=== PATIENT | female | born 1990 | race African-American/Black ===

== ENCOUNTER 2016-08-25 10:19 | Emergency (ER) | payer MEDICAID ==
[2016-08-25] MEDS ORDERED: HYDROCODONE/ACETAMINOPHEN 5-325 MG TABLET PO ONE (10:45)
[2016-08-25] MEDS ORDERED: ONDANSETRON 4 MG TAB.RAPDIS SL ONE (10:45)
[2016-08-25] MEDS ORDERED: NORMAL SALINE 1000 ML 1,000 ML IV PRN (10:45)
[2016-08-25] MEDS ORDERED: TRAMADOL HCL 50 MG TABLET PO ONE (10:47)
--- NOTE | 2016-08-25 10:47 | ER Document Report ---
ED Medical Screen (RME) - General Chief Complaint: Headache Stated Complaint: HEADACHE,JOINT PAIN,LIGHT SENSITIVITY Time seen by provider: 10:46 Mode of Arrival: Wheelchair Information source: Patient TRAVEL OUTSIDE OF THE U[place] IN LAST 30 DAYS: No - HPI Patient complains to provider of: headache, nausea Onset: This morning Onset/Duration: Gradual Quality of pain: Achy Severity: Moderate Pain Level: 3 Associated Symptoms: Nausea Exacerbated by: Other - light Relieved by: Denies Similar symptoms previously: Yes Recently seen / treated by doctor: Yes Notes: 08/25/16 10:47 Patient is a 25-year-old female with history of CML who was recently hospitalized in [place] and received chemotherapy, presents to the emergency room today complaining of a headache that started around 3:00 in the morning and woke her from sleep, she reports associated nausea and photophobia, she has not taken anything at home for her symptoms prior to coming to the emergency room, denies any fever Oncologist is Dr. Wayne from [place] - Related Data Allergies/Adverse Reactions: ibuprofen Adverse Reaction (Verified 08/25/16 10:26) Past Medical History Renal/ Medical History: Denies: Hx Peritoneal Dialysis Malignancy Medical History: Reports: Hx Leukemia - CML Past Surgical History: Reports: Hx Breast Surgery - Breast Reduction - Immunizations Immunizations up to date: No Hx Diphtheria, Pertussis, Tetanus Vaccination: No Physical Exam - Vital signs Vitals: Temp Pulse Resp BP Pulse Ox 98.1 F 77 14 109/59 L 99 08/25/16 10:28 08/25/16 10:28 08/25/16 10:28 08/25/16 10:28 08/25/16 10:28 Course - Vital Signs Vital signs: Temp Pulse Resp BP Pulse Ox 98.1 F 77 14 109/59 L 99 08/25/16 10:28 08/25/16 10:28 08/25/16 10:28 08/25/16 10:28 08/25/16 10:28
[2016-08-25] MEDS ORDERED: ONDANSETRON HCL INJ/PF 4 MG/2 ML SDV IV ONE (10:48)
[2016-08-25] MEDS ORDERED: KETOROLAC TROMETHAMINE INJ/PF 30 MG/1 ML SDV IV ONE (10:48)
--- NOTE | 2016-08-25 11:41 | ER Document Report ---
ED Headache - General Chief Complaint: Headache Stated Complaint: HEADACHE,JOINT PAIN,LIGHT SENSITIVITY Time seen by provider: 12:01 Mode of Arrival: Ambulatory Information source: Patient Notes: 25-year-old female presents to ED for headache with joint pains. She has a history of CML and was recently hospitalized at [facility] and received chemotherapy last day of chemotherapy was in the beginning of July. Her white count has been low until yesterday. She started with a headache at 3:00 this morning and has been having joint pain. She states she's been having joint pain since before she was diagnosed. She states that she is planning to have a bone marrow transplant and is getting that lined up. TRAVEL OUTSIDE OF THE [place] IN LAST 30 DAYS: No - HPI Patient complains to provider of: Headache Patient reports: Other - cml Onset: This morning Timing: Better Quality of pain: Achy Severity: Mild Pain Level: 1 Associated symptoms: Nausea/vomiting, Photophobia, Other - headache Exacerbated by: Light, Noise Similar symptoms previously: Yes Recently seen / treated by doctor: Yes - Related Data Allergies/Adverse Reactions: ibuprofen Adverse Reaction (Verified 08/25/16 10:26) Past Medical History - General Information source: Patient - Social History Smoking Status: Never Smoker Cigarette use (# per day): No Chew tobacco use (# tins/day): No Smoking Education Provided: No Frequency of alcohol use: None Drug Abuse: None Lives with: Family Family History: Reviewed & Not Pertinent Patient has suicidal ideation: No Patient has homicidal ideation: No - Past Medical History Cardiac Medical History: Reports: None Pulmonary Medical History: Reports: None EENT Medical History: Reports: None Neurological Medical History: Reports: None Endocrine Medical History: Reports: None Renal/ Medical History: Reports: None Malignancy Medical History: Reports: Hx Leukemia - CML GI Medical History: Reports: None Musculoskeltal Medical History: Reports None Skin Medical History: Reports None Psychiatric Medical History: Reports: None Traumatic Medical History: Reports: None Infectious Medical History: Reports: Other - herpes simplex Past Surgical History: Reports: Hx Breast Surgery - Breast Reduction, Hx Vascular Surgery - tlsc - Immunizations Immunizations up to date: No Hx Diphtheria, Pertussis, Tetanus Vaccination: No Review of Systems - Review of Systems Constitutional: No symptoms reported EENT: No symptoms reported Cardiovascular: No symptoms reported Respiratory: No symptoms reported Gastrointestinal: Nausea Genitourinary: No symptoms reported Female Genitourinary: No symptoms reported Musculoskeletal: No symptoms reported Skin: No symptoms reported Hematologic/Lymphatic: No symptoms reported Neurological/Psychological: Headaches Physical Exam - Vital signs Vitals: Temp Pulse Resp BP Pulse Ox 98.1 F 77 14 109/59 L 99 08/25/16 10:28 08/25/16 10:28 08/25/16 10:28 08/25/16 10:28 08/25/16 10:28 Interpretation: Normal - General General appearance: Appears well, Alert - HEENT Head: Normocephalic, Atraumatic Eyes: Normal Pupils: PERRL - Respiratory Respiratory status: No respiratory distress, Other - TLSC, right chest Chest status: Nontender Breath sounds: Normal Chest palpation: Normal - Cardiovascular Rhythm: Regular Heart sounds: Normal auscultation Murmur: No - Abdominal Inspection: Normal Distension: No distension Bowel sounds: Normal Tenderness: Nontender Organomegaly: No organomegaly - Back Back: Normal, Nontender - Extremities General upper extremity: Normal inspection, Nontender, Normal color, Normal ROM , Normal temperature General lower extremity: Normal inspection, Nontender, Normal color, Normal ROM , Normal temperature, Normal weight bearing. No: Velasquez's sign - Neurological Neuro grossly intact: Yes Cognition: Normal Orientation: AAOx4 Caleb Coma Scale Eye Opening: Spontaneous Caleb Coma Scale Verbal: Oriented Abrams Coma Scale Motor: Obeys Commands Abrams Coma Scale Total: 15 Speech: Normal Motor strength normal: LUE, RUE, LLE, RLE Sensory: Normal - Psychological Associated symptoms: Normal affect, Normal mood - Skin Skin Temperature: Warm Skin Moisture: Dry Skin Color: Normal Course - Re-evaluation Re-evalutation: 08/25/16 13:08 Labs discussed with patient and with parents. Written report of labs given to parents to follow-up with oncologist and [facility] on Wednesday. Patient states she is feeling better and is ready to go home. We'll discharge home with a copy of her labs. 08/25/16 13:08 Patient was treated with a liter of fluids Toradol Zofran Compazine and Benadryl. - Vital Signs Vital signs: Temp Pulse Resp BP Pulse Ox 98 F 92 20 101/69 100 08/25/16 13:32 08/25/16 13:32 08/25/16 13:32 08/25/16 13:32 08/25/16 13:32 - Laboratory Result Diagrams: 08/25/16 11:10 08/25/16 11:10 Laboratory results interpreted by me: 08/25/16 08/25/16 11:10 11:10 WBC 2.9 L RBC 2.85 L Hgb 7.7 L Hct 22.5 L MCV 79 L RDW 16.0 H Plt Count 41 L Seg Neuts % (Manual) 34 L Band Neutrophils % 1 L Lymphocytes % (Manual) 53 H Metamyelocytes % 1 H Abs Neuts (Manual) 1.0 L Creatinine 0.40 L Discharge - Discharge Clinical Impression: Headache Condition: Stable Disposition: HOME, SELF-CARE Additional Instructions: HEADACHE: The physician does not feel that the headache you are experiencing has a serious underlying cause. Most headaches are due to emotional stress, with resultant muscle tension (tension headache). Occasionally, headaches are secondary to changes in the blood vessels of the scalp (vascular headache and migraine headache). Sometimes, a headache is the first symptom of another developing illness, such as a viral infection. You have no evidence of stroke, bleeding, meningitis, or other serious cause of your headache. The treatment of headaches varies with the severity and cause of the pain. Not all headaches need pain shots. In fact, there is evidence that using narcotics for headaches may make them worse in the long run. The physician will determine the therapy that's in your best interest. If you develop a fever, if the headache is different from any you've previously experienced, or if the headache progressively worsens, then call your physician at once or go to the emergency room. USE OF DIPHENHYDRAMINE: Diphenhydramine (Benadryl) is an antihistamine and has been recommended to help treat your headache and to prevent side effects of other medications used to treat headaches. The medication can be repeated four times daily. Age Elixir (12.5 mg/tsp) 25 mg pill adult 1-2 tabs Antihistamines may cause drowsiness, especially with the first dose. Do not operate machinery or drive while under the effects of the medication. Do not combine the medication with alcohol, or with any other medication without talking to your doctor. ANTINAUSEA MEDICATION: You have been given a medication to suppress nausea and vomiting. This type of medication can be given as a shot, pill, or suppository. It will usually last for many hours. Pills and shots usually last six to eight hours, suppositories last about 12 hours. For the typical illness, only one or two doses of the medication may be necessary. Mild lightheadedness may occur. This type of medicine can cause drowsiness. Do not drive or operate dangerous machinery while under its influence. Do not mix with alcohol. See your doctor at once if you have muscle spasms or tightness, or uncontrollable motions (particularly of the neck, mouth, or jaw). Persistent vomiting or severe lightheadedness should also be evaluated by the physician. INTRAVENOUS COMPAZINE FOR HEADACHE: You have received therapy for headaches, using intravenous Compazine. This treatment is dramatically successful in relieving the headache in about 50 percent of cases. When it works, it provides a rapid method of eliminating the headache without resorting to narcotics (and the problems associated with them). Most patients still feel fully alert after the Compazine, but others may be slightly drowsy. It's best not to drive or work with machinery for six to eight hours. Do not take alcohol or other medication unless you discuss it with the doctor. If you develop tightness and spasms in your muscles, especially the neck and tongue, you should return. This is a side effect which can be treated. TORADOL INJECTION: You have been given an injection of ketorolac tromethamine (Toradol). This is an excellent, safe drug for pain control. It also has potent antiinflammatory action. You should have significant pain relief within about one hour. Toradol is not addicting and is non-sedating. It does not interfere with driving or work. Call or return if you develop itching, hives, shortness of breath, or rash. FOLLOW-UP CARE: Please follow-up with your oncologist on Wednesday as scheduled or return to ED before then if you have any other complications. If you have been referred to a physician for follow-up care, call the physician s office for an appointment as you were instructed or within the next two days. If you experience worsening or a significant change in your symptoms, notify the physician immediately or return to the Emergency Department at any time for re-evaluation. Please complete the patient's satisfaction survey if you get one and return. If you do not receive a survey you can go to [facility] website [email or web address] and place your comments about your very good care. Thank you very much. It was a pleasure be in your medical provider today.
[2016-08-25 11:51] LABS: HEMATOCRIT 22.5 % (36.0-47.0); HGB HCT DIFFERENCE 0.6; MEAN CORPUSCULAR HGB CONC 34.2 g/dL (32.0-36.0); MEAN CORPUSCULAR VOLUME 79 fl (80-97); RED BLOOD COUNT 2.85 10^6/uL (3.72-5.28); WHITE BLOOD COUNT 2.9 10^3/uL (4.0-10.5)
[2016-08-25 12:16] LABS: HEMOGLOBIN 7.7 g/dL (12.0-15.5)
[2016-08-25 12:20] LABS: ALANINE AMINOTRANSFERASE 50 U/L (9-52); ALKALINE PHOSPHATASE 62 U/L (38-126); ANION GAP 11 (5-19); ASPARTATE AMINO TRANSFERASE 20 U/L (14-36); BILIRUBIN,DIRECT 0.3 mg/dL (0.0-0.4); BILIRUBIN,TOTAL 0.5 mg/dL (0.2-1.3); BLOOD UREA NITROGEN 10 mg/dL (7-20); CALCIUM 9.2 mg/dL (8.4-10.2); CARBON DIOXIDE 26 mmol/L (22-30); CHLORIDE 107 mmol/L (98-107); GLUCOSE 105 mg/dL (75-110); POTASSIUM 3.6 mmol/L (3.6-5.0); SODIUM 143.6 mmol/L (137-145); TOTAL PROTEIN 6.7 g/dL (6.3-8.2)
[2016-08-25 12:23] LABS: BAND NEUTROPHILS % (MANUAL) 1 % (3-5); BASOPHILS % (MANUAL) 0 % (0-2); EOSINOPHILS % (MANUAL) 0 % (0-6); LYMPHOCYTES % (MANUAL) 53 % (13-45); NUCLEATED RED BLOOD CELLS 2 /100 WBC (0); TOTAL CELLS COUNTED 100
[2016-08-25 12:24] LABS: ANISOCYTOSIS 1+; HYPOCHROMASIA SLIGHT; OVALOCYTES 2+; POIKILOCYTOSIS 2+; POLYCHROMASIA 1+; ROULEAUX 1+; SCHISTOCYTES SLIGHT; TEAR DROP CELLS 1+; TOXIC GRANULATION SLIGHT
[2016-08-25] MEDS ORDERED: DIPHENHYDRAMINE HCL 50 MG/ML VIAL IV ONE (12:27)
[2016-08-25] MEDS ORDERED: PROCHLORPERAZINE EDISYLATE INJ 10 MG/2 ML VIAL IV ONE (12:27)
[2016-08-25 12:54] LABS: APPEARANCE,URINE CLEAR; BILIRUBIN,URINE NEGATIVE (NEGATIVE); GLUCOSE, URINE NEGATIVE (NEGATIVE); KETONES,URINE NEGATIVE (NEGATIVE); LEUKOCYTE ESTERASE,URINE NEGATIVE (NEGATIVE); NITRITE,URINE NEGATIVE (NEGATIVE); PROTEIN,URINE NEGATIVE (NEGATIVE); URINE SPECIFIC GRAVITY 1.011; UROBILINOGEN,URINE NEGATIVE mg/dL (<2.0)
[2016-08-25 13:33] VITALS: BP 101/69
== END 2016-08-25 13:54 | disposition home or self-care (01) ==
LOC: ER 10:19
DX: R51 Headache (principal); M25.50 Pain in unspecified joint; R11.2 Nausea with vomiting, unspecified; H53.149 Visual discomfort, unspecified; C92.10 Chronic myeloid leukemia, BCR/ABL-positive, not having achieved remission
CPT/HCPCS: 99284; 96374; 96375; 36415; 87086; 85025; 80053; 81001; J1200; J1885; J0780; J2405; J1642

== ENCOUNTER 2017-01-26 18:11 | Emergency (ER) | payer MEDICAID ==
[2017-01-26] MEDS ORDERED: NORMAL SALINE 1000 ML 1,000 ML IV ONE (18:55)
--- NOTE | 2017-01-26 18:57 | ER Document Report ---
ED General - General Mode of Arrival: Ambulatory Information source: Patient TRAVEL OUTSIDE OF THE [place] IN LAST 30 DAYS: No - HPI Onset: Other - Refer to HPI notes Similar symptoms previously: No Recently seen / treated by doctor: No <HELENA ARELLANO - Last Filed: 01/27/17 03:25> <JUANVICENTAUZMA - Last Filed: 01/27/17 03:26> - General Chief Complaint: Weakness Stated Complaint: LIGHTHEADEDNESS Time Seen by Provider: 01/26/17 18:48 Notes: Patient is a 26 year old female with history of leukemia presenting to the emergency department for weakness, shortness of breath, and lightheadedness. Patient also complains of chills. Patient states she believes she is dehydrated because she has had dry lips. Patient states she has chronic vomiting and lack of appetite which has not changed or become worse. Patient states she is on Eliquis for a blood clot on her Loza catheter. 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 Patient states she is allergic to ibuprofen. Patient used to go to [facility] but she is mostly followed by Dr. Fu at [place]. (HELENA ARELLANO) - Related Data Allergies/Adverse Reactions: ibuprofen Adverse Reaction (Verified 01/26/17 18:24) Past Medical History - General Information source: Patient - Social History Smoking Status: Never Smoker Cigarette use (# per day): No Chew tobacco use (# tins/day): No Smoking Education Provided: No Frequency of alcohol use: None Drug Abuse: None Family History: None Patient has suicidal ideation: No Patient has homicidal ideation: No Malignancy Medical History: Reports: Hx Leukemia - CML Past Surgical History: Reports: Hx Breast Surgery - Breast Reduction, Hx Vascular Surgery - tlsc - Immunizations Immunizations up to date: No Hx Diphtheria, Pertussis, Tetanus Vaccination: No <HELENA ARELLANO - Last Filed: 01/27/17 03:25> Review of Systems - Review of Systems Constitutional: See HPI, Chills EENT: See HPI, Other - dry lips Cardiovascular: See HPI, Lightheaded. denies: Chest pain Respiratory: See HPI, Short of breath Gastrointestinal: See HPI, Nausea, Vomiting, Poor appetite Genitourinary: No symptoms reported Female Genitourinary: No symptoms reported Musculoskeletal: No symptoms reported Skin: No symptoms reported Hematologic/Lymphatic: No symptoms reported Neurological/Psychological: See HPI, Weakness -: Yes All other systems reviewed and negative <HELENA ARELLANO - Last Filed: 01/27/17 03:25> Physical Exam - Vital signs Interpretation: Normal <HELENA ARELLANO - Last Filed: 01/27/17 03:25> <UZMA LANDRY - Last Filed: 01/27/17 03:26> - Vital signs Vitals: Temp Pulse Resp BP Pulse Ox 98.3 F 95 16 105/86 H 100 01/26/17 18:24 01/26/17 18:24 01/26/17 18:24 01/26/17 18:24 01/26/17 18:24 - Notes Notes: GENERAL: Alert, interacts well, slightly tremulous. Appears short of breath. HEAD: Normocephalic, atraumatic. EYES: Pupils equal, round, and reactive to light. Extraocular movements intact. ENT: Oral mucosa moist, tongue midline. NECK: Full range of motion. Supple. Trachea midline. LUNGS: Appears short of breath. Speaking 2-3 word sentences. Clear to auscultation bilaterally, no wheezes, rales, or rhonchi. HEART: Regular rate and rhythm. No murmurs, gallops, or rubs. ABDOMEN: Soft, non-tender. Non-distended. Bowel sounds present in all 4 quadrants. EXTREMITIES: Moves all 4 extremities spontaneously. No edema, radial and dorsalis pedis pulses 2/4 bilaterally. No cyanosis. NEUROLOGICAL: Alert and oriented x3. Normal speech. PSYCH: Normal affect, normal mood. SKIN: Warm, dry, normal turgor. No rashes or lesions noted. (ELOISEHELENA HALL) Course - Laboratory Result Diagrams: 01/26/17 18:56 01/26/17 20:25 - Consults [facility] Transfer line Time consulted: 23:35 <HELENA ARELLANO - Last Filed: 01/27/17 03:25> - Laboratory Result Diagrams: 01/26/17 18:56 01/26/17 20:25 <UZMA LANDRY - Last Filed: 01/27/17 03:26> - Re-evaluation Re-evalutation: 01/27/17 00:48 CBC unremarkable, INR slightly prolonged at 1.13, venous blood gas shows respiratory alkalosis with pH of 7.55 and a PCO2 of 32.8 consistent with her tachypnea, CMP shows potassium that is low at 3.2 and AST and ALT slightly elevated, otherwise unremarkable, lactic acid normal, hCG negative, urinalysis unremarkable, no ketones and specific gravity is 1.005. Patient was given a liter of fluids due to her feeling that she is dehydrated. Patient actually looks much better after this liter of fluids despite the fact that there is no laboratory evidence of dehydration. Given her tachypnea and shortness of breath on physical examination, she was speaking in 4-5 word sentences despite having no hypoxia or tachycardia I did perform a CT angiogram of the chest to look for pulmonary embolism particularly given the known clot attached to her Loza catheter back in June. This did reveal a focal pulmonary embolism in 1 of the right pulmonary arteries. I then discussed the case with Dr. England the Heme/Onc fellow [facility] who referred me to speak with Dr. Adam Sanchez the attending physician candle extrusion machine operator. The attending physician candle extrusion machine operator stated that this would be counted as a failure of Eliquis, recommended starting low molecular weight heparin 1 mg/kg subcu every 12 hours, stated that that was the standard of care for anticoagulation in cancer however stated that acutely we could change her to a double dose of Eliquis twice a day for the next 2 days until she was followed up in clinic in 2 days. Discussed these 2 options with patient, she prefers to use the Eliquis as she already has that at home and hates shots. She will take 2 pills of Eliquis twice a day for the next 2 days. Patient is aware that enoxaparin is the better idea. Currently she is completely symptom-free, tremor has resolved, patient is not hypoxic, tachypnea has resolved, there is no shortness of breath apparent at this time. (UZMA LANDRY) - Vital Signs Vital signs: Temp Pulse Resp BP Pulse Ox 98.3 F 74 20 101/72 100 01/26/17 18:24 01/26/17 22:00 01/27/17 01:01 01/27/17 01:01 01/27/17 01:01 - Laboratory Laboratory results interpreted by me: 01/26/17 01/26/17 01/26/17 18:56 19:54 20:25 RDW 14.5 H VBG pH 7.55 H VBG pCO2 32.8 L Potassium 3.2 L AST 51 H ALT 83 H - EKG Interpretation by Me Additional EKG results interpreted by me: 01/27/17 01:09 EKG shows sinus rhythm at a rate of 80, normal axis, normal intervals, no ST segment elevations or depressions, there are T-wave inversions noted in V1 through V3, poor baseline in V4, T-wave flattening in V5 and diffusely elsewhere per my interpretation. (UZMA LANDRY) - Consults [facility] Transfer line Reason for consultation: 01/26/17 23:35 Contacted [facility] transfer line to consult about patient; Dr. Stevenson will be calling back. 01/27/17 00:[address] Stevenson to discuss patient. Dr. Stevenson recommends that Dr. Gaurang Sanchez, the attending physician answer this question and he will be paged to call. 01/27/17 00:[address] Gaurang Sanchez. He recommends to either start the patient on LMWH or double the patient's dose of Eliquis for 2 days and change it in the clinic afterwards. (HELENA ARELLANO) Discharge <HELENA ARELLANO - Last Filed: 01/27/17 03:25> <UZMA LANDRY - Last Filed: 01/27/17 03:26> - Discharge Clinical Impression: Pulmonary embolism Qualifiers: Pulmonary embolism type: other Chronicity: acute Acute cor pulmonale presence: without acute cor pulmonale Qualified Code(s): I26.99 - Other pulmonary embolism without acute cor pulmonale Condition: Stable Disposition: HOME, SELF-CARE Additional Instructions: Please take 2 of your Eliquis twice a day for the next 2 days until you are followed up in clinic. Dr. Sanchez stated this was 1 of your options and you have chosen this option. The other option was to switch to the Lovenox shots 1 mg/kg twice a day. He does state that using Lovenox is the better option. Please return here should you become short of breath, have any chest pain, feel weak or become tremulous again. Scribe Attestation: 01/27/17 03:25 I personally performed the services described in the documentation, reviewed and edited the documentation which was dictated to the scribe in my presence, and it accurately records my words and actions. (UZMA LANDRY) Scribe Documentation - Scribe Written by Dawson:: Dawson Booker 01/26/2017 22:13 acting as scribe for :: Gracie <HELENA ARELLANO - Last Filed: 01/27/17 03:25>
--- NOTE | 2017-01-26 19:25 | RADIOLOGY REPORT (SQ) ---
EXAM DESCRIPTION: CHEST SINGLE VIEW COMPLETED DATE/TIME: 01/26/2017 7:10 pm REASON FOR STUDY: shortness of breath COMPARISON: May 2015 EXAM PARAMETERS: NUMBER OF VIEWS: One view. TECHNIQUE: Single frontal radiographic view of the chest acquired. RADIATION DOSE: NA LIMITATIONS: None. FINDINGS: LUNGS AND PLEURA: No opacities, masses or pneumothorax. No pleural effusion. MEDIASTINUM AND HILAR STRUCTURES: No masses. Contour normal. HEART AND VASCULAR STRUCTURES: Heart normal in size. Normal vasculature. BONES: No acute findings. HARDWARE: Overlying monitoring devices are identified. OTHER: No other significant finding. IMPRESSION: NO ACUTE RADIOGRAPHIC FINDING IN THE CHEST. TECHNICAL DOCUMENTATION: JOB ID: [id number]
[2017-01-26 20:16] LABS: ABSOLUTE EOSINOPHILS # (AUTO) 0.2 10^3/uL (0.0-0.6); ABSOLUTE LYMPHOCYTES (AUTO) 1.8 10^3/uL (0.5-4.7); ABSOLUTE MONOCYTES (AUTO) 0.8 10^3/uL (0.1-1.4); ABSOLUTE NEUT (AUTO) 3.6 10^3/uL (1.7-8.2); BASOPHILS % (AUTO) 0.2 % (0-2); EOSINOPHILS % (AUTO) 3.1 % (0-6); HEMATOCRIT 37.5 % (36.0-47.0); HEMOGLOBIN 12.6 g/dL (12.0-15.5); HGB HCT DIFFERENCE 0.3; LYMPHOCYTES % (AUTO) 28.4 % (13-45); MEAN CORPUSCULAR HEMOGLOBIN 29.4 pg (27.0-33.4); MEAN CORPUSCULAR HGB CONC 33.6 g/dL (32.0-36.0); MEAN CORPUSCULAR VOLUME 87 fl (80-97); MONOCYTES % (AUTO) 12.2 % (3-13); RED BLOOD COUNT 4.29 10^6/uL (3.72-5.28); RED CELL DISTRIBUTION WIDTH 14.5 % (11.5-14.0); SEGMENTED NEUTROPHILS % (AUTO) 56.1 % (42-78); WHITE BLOOD COUNT 6.4 10^3/uL (4.0-10.5)
[2017-01-26 20:21] LABS: PROTHROMBIN TIME 15.2 SEC (11.4-15.4)
[2017-01-26 20:35] LABS: ALANINE AMINOTRANSFERASE 83 U/L (9-52); ALBUMIN 4.1 g/dL (3.5-5.0); ALKALINE PHOSPHATASE 56 U/L (38-126); ANION GAP 14 (5-19); ASPARTATE AMINO TRANSFERASE 51 U/L (14-36); BILIRUBIN,DIRECT 0.3 mg/dL (0.0-0.4); BILIRUBIN,TOTAL 0.5 mg/dL (0.2-1.3); BLOOD UREA NITROGEN 10 mg/dL (7-20); CARBON DIOXIDE 24 mmol/L (22-30); CHLORIDE 101 mmol/L (98-107); CREATININE RESULT 0.53 mg/dL (0.52-1.25); GLUCOSE 101 mg/dL (75-110); POTASSIUM 3.2 mmol/L (3.6-5.0); SODIUM 138.6 mmol/L (137-145); TOTAL PROTEIN 6.6 g/dL (6.3-8.2)
[2017-01-26 20:39] LABS: VENOUS BLOOD BASE EXCESS 6.2 mmol/L; VENOUS BLOOD HCO3 28.2 mmol/L (20-32); VENOUS BLOOD PCO2 32.8 mmHg (35-63); VENOUS BLOOD PH 7.55 (7.30-7.42)
[2017-01-26 21:13] LABS: APPEARANCE,URINE CLEAR; BILIRUBIN,URINE NEGATIVE (NEGATIVE); GLUCOSE, URINE NEGATIVE (NEGATIVE); KETONES,URINE NEGATIVE (NEGATIVE); LEUKOCYTE ESTERASE,URINE NEGATIVE (NEGATIVE); NITRITE,URINE NEGATIVE (NEGATIVE); PROTEIN,URINE NEGATIVE (NEGATIVE); URINE SPECIFIC GRAVITY 1.005; UROBILINOGEN,URINE NEGATIVE mg/dL (<2.0)
--- NOTE | 2017-01-26 22:41 | RADIOLOGY REPORT (SQ) ---
EXAM DESCRIPTION: CTA CHEST COMPLETED DATE/TIME: 01/26/2017 9:43 pm REASON FOR STUDY: SOB, lightheaded, h/o clot on hickmon, r/o PE COMPARISON: None. TECHNIQUE: CT scan of the chest performed using helical scanning technique with dynamic intravenous contrast injection. Images reviewed with lung, soft tissue and bone windows. Reconstructed coronal and sagittal MPR images reviewed. Additional 3 dimensional post-processing performed to develop Maximal Intensity Projection images (NE P). All images stored on PACS. All CT scanners at this facility use dose modulation, iterative reconstruction, and/or weight based d osing when appropriate to reduce radiation dose to as low as reasonably achievable (ALARA). [facility]: Dose Right [facility]: CareDose [facility]: Dose Right [facility]: Teradose 4D [facility]: NTN Buzztime CONTRAST TYPE AND DOSE: contrast/concentration: Isovue 370.00 mg/ml; Total Contrast Delivered: 100.0 ml; Total Saline Delivered: 50.0 ml Contrast bolus optimized for the pulmonary arteries. Not diagnostic for the aorta. RENAL FUNCTION: Creatinine 0.53 RADIATION DOSE: Up-to-date CT equipment and radiation dose reduction techniques were employed. CTDIv ol: 6.6 - 31.5 mGy. DLP: 901 mGy-cm. . LIMITATIONS: None. FINDINGS: LUNGS AND PLEURA: No masses, infiltrates, pneumothorax. No pleural effusions, calcificati ons. AORTA AND GREAT VESSELS: No aneurysm. Contrast bolus not optimized for the aorta. HEART: No pericardial effusion. No significant coronary artery calcifications. PULMONARY ARTERIES: There is a small focal pulmonary embolus in 1 of the right descending pulmonary a rteries best seen on image number 53 through 56 of series 3. No other evidence for pulmonary embolic disease is seen. HILAR AND MEDIASTINAL STRUCTURES: No identified masses or abnormal nodes. HARDWARE: None in the chest. UPPER ABDOMEN: No significant findings. Limited exam. THYROID AND OTHER SOFT TISSUES: No masses. No adenopathy. BONES: No acute or significant finding. 3D MIPS: Confirm above findings. OTHER: No other significant finding. IMPRESSION: Small focal pulmonary embolus in 1 of the right descending pulmonary arteries as noted veronica archibald. No other evidence for pulmonary embolic disease is seen. No acute consolidations or pleural e ffusions are identified. Other findings as noted above COMMENT: Quality ID # [id number]: Final reports with documentation of one or more dose reduction techniques (e.g., Automated exposure control, adjustment of the mA and/or kV according to patient size, use of iterative reconstruction technique) TECHNICAL DOCUMENTATION: JOB ID: [id number] [employer]- All Rights Reserved
[2017-01-27 01:12] VITALS: BP 101/72
--- NOTE | 2017-01-27 08:17 | EKG REPORT ---
SEVERITY:- ABNORMAL ECG - SINUS RHYTHM NONSPECIFIC T ABNORMALITIES, ANT-LAT LEADS : Confirmed by: Christiano Hutchinson MD 27-Jan-2017 08:17:07
== END 2017-01-27 01:38 | disposition home or self-care (01) ==
LOC: ER 18:11
DX: I26.99 Other pulmonary embolism without acute cor pulmonale (principal); R53.1 Weakness; R06.02 Shortness of breath; R68.83 Chills (without fever); R11.10 Vomiting, unspecified; Z94.81 Bone marrow transplant status; Z85.6 Personal history of leukemia; Z88.6 Allergy status to analgesic agent; Z79.02 Long term (current) use of antithrombotics/antiplatelets
CPT/HCPCS: 93005; 99285; 36415; 87040; 87086; 82962; 84703; 85025; 85610; 80053; 81001; 82803; 83605; 71010; 71275; 93010; J7030

== ENCOUNTER 2018-05-20 11:21 | Emergency (ER) | payer MEDICARE, MEDICAID ==
--- NOTE | 2018-05-20 11:35 | ER Document Report ---
ED Medical Screen (RME) - General Chief Complaint: Headache Stated Complaint: WEAKNESS Time Seen by Provider: 05/20/18 11:28 TRAVEL OUTSIDE OF THE [place] IN LAST 30 DAYS: No - HPI Notes: 05/20/18 11:32 Patient is a 27-year-old female that presents to the emergency department for chief complaint of confusion. 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 She was making breakfast around 1045 this morning when mother noticed she was altered. Patient had dropped food on herself and seemed disoriented. Mother states that she still seems very out of it. On the way to the emergency room patient started complaining of bilateral frontal headache. The headache was sudden in onset. She describes it as a pressure sensation. Patient denies numbness and weakness as well as vision changes. Mother states she still seems very out of it.. ROS: GENERAL: Denies fever of chills CV: Denies chest pain Neurologic: Mental status change, headache PHYSICAL EXAMINATION: GENERAL: Well-appearing, well-nourished and in no acute distress. HEAD: Atraumatic, normocephalic. EYES: Pupils equal round extraocular movements intact, conjunctiva are normal. ENT: Nares patent NECK: Normal range of motion LUNGS: No respiratory distress Musculoskeletal: Normal range of motion NEUROLOGICAL: NIH equals 1, normal speech, normal motor, normal sensation. MDM: Patient seen and examined for rapid initial assessment. Vital signs reviewed. A comprehensive ED assessment and evaluation of the patient, analysis of test results and completion of the medical decision making process will be conducted by additional ED providers. 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 NIH scale should be completed with appropriate accompanying assessment tools. *: 2. The NIH should reflect what the patient is capable of doing and should not be coached by the clinician. 1a. Level of Consciousness: 0=Alert;keenly responsive -: 1=Drowsy -: 2=Obtunded -: 3=Coma/unresponsive or reflex to noxious stimuli. 1a. Responses: 1 1b. Orientation Questions: a. What month is it? -: b. How old are you? -: 0=Answers both questions correctly. -: 1=Answers one question correctly or patient is intubated or has orotracheal trauma. -: 2=Answers neither question correctly. 1b. Responses: 0 1c. Response to commands: a. Open and close eyes? -: b. Sustainability Director and release hand? -: Credit is given despite weakness. Demonstration of task is permitted. Substitute command if hands cannot be used. -: 0=Performs both tasks correctly -: 1=Performs one task correctly -: 2=Performs neither task correctly 1c. Responses: 0 2. Gaze: Establish eye contact and instruct patient to "Follow my finger" -: 0=Normal -: 1=Partial gaze palsy. Gaze is abnormal in one or both eyes, but where forced deviation or total gaze paresis is not present. -: 2=Forced deviation or total gaze paresis. 2. Responses: 0 3. Visual Saenz: Sees fingers in all four quadrants. -: 0=No visual loss. -: 1=Partial hemianopsia. -: 2=Complete hemianopsia. -: 3=Bilateral hemianopsia (including Cortical blindness) 3. Responses: 0 4. Facial Movement: Instruct patient to: -: a. Show me your teeth -: b. Raise your eyebrows -: c. Close your eyes -: d. Smile -: 0=Normal symmetrical movement -: 1=Minor paralysis (flattened nasolabial fold, asymmetry on smiling). -: 2=Partial paralysis (total or near total paralysis of lower face). -: 3=Complete paralysis of upper and lower face 4. Responses: 0 5. Motor functions (left arm): Alternate sides and extend each arm with palms down (90 degrees if sitting or 45 degrees for supine). -: 0=No drift;limb holds for full 10 seconds. -: 1=Drift; limb holds but drifts down before full 10 seconds, but does not hit bed. -: 2=Some effort against gravity; limb cannot get to or maintain position. -: 3=No effort against gravity; limb falls. -: 4=No movement. -: UN=Amputation, joint fusion, explain in comments. 5. Responses (left arm): 0 5. Motor Functions (right arm): Alternate sides and extend each arm with palms down (90 degrees if sitting or 45 degrees for supine). -: 0=No drift;limb holds for full 10 seconds. -: 1=Drift; limb holds but drifts down before full 10 seconds, but does not hit bed. -: 2=Some effort against gravity; limb cannot get to or maintain position. -: 3=No effort against gravity; limb falls. -: 4=No movement. -: UN=Amputation, joint fusion, explain in comments. 5. Responses (right arm): 0 6. Motor Functions (left leg): With patient lying supine, alternate sides and extend each leg (30 degrees always while supine). -: 0=No drift, leg holds position for full 5 seconds -: 1=Drift; leg falls before full 5 seconds but does not hit bed. -: 2=Some effort against gravity, leg falls to bed but some effort against gravity. -: 3=No effort against gravity, leg falls to bed immediately. -: 4=No movement. -: UN=Amputation, joint fusion; explain in comments. 6. Responses (left leg): 0 6. Motor Functions (right leg): With patient lying supine, alternate sides and extend each leg (30 degrees always while supine). -: 0=No drift, leg holds position for full 5 seconds -: 1=Drift; leg falls before full 5 seconds but does not hit bed. -: 2=Some effort against gravity, leg falls to bed but some effort against gravity. -: 3=No effort against gravity, leg falls to bed immediately. -: 4=No movement. -: UN=Amputation, joint fusion; explain in comments. 6. Responses (right leg): 0 7. Limb Ataxia: With eyes open instruct patient to: -: a. "Touch your finger to your nose". -: b. "Touch your heel to your khan" -: 0=Absent -: 1=Present in one limb. -: 2=Present in two limbs. -: UN=Amputation or joint fusion; explain in comments. 7. Responses: 0 8. Sensory: Test sensation using pinprick or noxious stimuli. Test as many body parts as possible. -: 0=Normal;no sensory loss -: 1=Mile to moderate sensory loss (patient feels pin prick but is less sharp on affected side). -: 2=Severe or total sensory loss. 8. Responses: 0 9. Best Language: Instruct patient to: -: a. "Describe what you see in this picture." -: b. "Name the items in this picture." -: c. "Read these sentences." -: 0=No aphasia, normal -: 1=Mild to moderate aphasia. -: 2=Severe aphasia -: 3=Mute, global aphasia, no usable speech or auditory comprehension. 9. Responses: 0 10. Articulation, Dysarthia: Instruct patient to: -: "Read these words" or "Repeat these words" -: 0=Normal -: 1=Mild to moderate; patient may slur some words but can be understood without difficulty. -: 2=Severe; patients speech so slurred as to be unintelligible in the absence of dysphasia. -: UN=Intubated or other physical barrier, explain in comments. 10. Responses: 0 11. Extinction or inattention: 0=No abnormality -: 1= Visual, tactile, auditory, spatial, or personal inattention or extinction to bilateral simulation in one or the sensory modalities. -: 2=Profound yang-inattention or yang-inattention to more than one modality; does not recognize own hand. 11. Responses: 0 Total Score: 1
--- NOTE | 2018-05-20 11:57 | RADIOLOGY REPORT (SQ) ---
EXAM DESCRIPTION: CT HEAD WITHOUT COMPLETED DATE/TIME: 05/20/2018 11:44 am REASON FOR STUDY: altered mental status COMPARISON: None. TECHNIQUE: Axial images acquired through the brain without intravenous contrast. Images reviewed wi th bone, brain and subdural windows. Additional sagittal and coronal reconstructions were generated. Images stored on PACS. All CT scanners at this facility use dose modulation, iterative reconstruction, and/or weight based d osing when appropriate to reduce radiation dose to as low as reasonably achievable (ALARA). [facility]: Dose Right [facility]: CareDose [facility]: Dose Right [facility]: Teradose 4D [facility]: [employer] RADIATION DOSE: CT Rad equipment meets quality standard of care and radiation dose reduction techniq ues were employed. CTDIvol: 23.1 mGy. DLP: 499 mGy-cm. mGy. LIMITATIONS: None. FINDINGS: VENTRICLES: Normal size and contour. CEREBRUM: No masses. No hemorrhage. No midline shift. No evidence for acute infarction. Normal gra y/white matter differentiation. No areas of low density in the white matter. CEREBELLUM: No masses. No hemorrhage. No alteration of density. No evidence for acute infarction. EXTRAAXIAL SPACES: No fluid collections. No masses. ORBITS AND GLOBE: No intra- or extraconal masses. Normal contour of globe without masses. CALVARIUM: No fracture. PARANASAL SINUSES: There is mucoperiosteal thickening in the right maxillary sinus. Some of the righ t ethmoid air cells are opacified. Mucoperiosteal changes seen in the right sphenoid sinus. SOFT TISSUES: No mass or hematoma. OTHER: No other significant finding. IMPRESSION: Sinus disease with no acute imaging findings. EVIDENCE OF ACUTE STROKE: NO. COMMENT: Pertinent positive or negative findings of the imaging study reported as a CRITICAL EXAM pam kayden DEUTSCH at11:51 on 05/20/2018. Quality ID # [id number]: Final reports with documentation of one or more dose reduction techniques (e.g., Au tomated exposure control, adjustment of the mA and/or kV according to patient size, use of iterative reconstruction technique) TECHNICAL DOCUMENTATION: JOB ID: [id number] [employer]- All Rights Reserved Reading location - IP/workstation name: [email or web address]
--- NOTE | 2018-05-20 11:58 | RADIOLOGY REPORT (SQ) ---
EXAM DESCRIPTION: CHEST SINGLE VIEW COMPLETED DATE/TIME: 05/20/2018 11:49 am REASON FOR STUDY: altered mental status COMPARISON: 05/24/2015 EXAM PARAMETERS: NUMBER OF VIEWS: One view. TECHNIQUE: Single frontal radiographic view of the chest acquired. RADIATION DOSE: NA LIMITATIONS: None. FINDINGS: LUNGS AND PLEURA: No opacities, masses or pneumothorax. No pleural effusion. MEDIASTINUM AND HILAR STRUCTURES: No masses. Contour normal. HEART AND VASCULAR STRUCTURES: Heart normal in size. Normal vasculature. BONES: No acute findings. HARDWARE: None in the chest. OTHER: No other significant finding. IMPRESSION: NO ACUTE RADIOGRAPHIC FINDING IN THE CHEST. TECHNICAL DOCUMENTATION: JOB ID: [id number] [employer]- All Rights Reserved Reading location - IP/workstation name: [email or web address]
[2018-05-20] MEDS ORDERED: NORMAL SALINE 1000 ML 1,000 ML IV ONE (12:00)
[2018-05-20] MEDS ORDERED: DIPHENHYDRAMINE HCL 50 MG/ML VIAL IV ONE (12:00)
[2018-05-20] MEDS ORDERED: METOCLOPRAMIDE HCL INJ/PF 10 MG/2 ML SDV IV ONE (12:00)
--- NOTE | 2018-05-20 12:00 | ER Document Report ---
ED Headache - General Chief Complaint: Headache Stated Complaint: WEAKNESS Time Seen by Provider: 05/20/18 11:28 Notes: 27-year-old female that presents to the emergency department for chief complaint of confusion. 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 She was making breakfast around 1045 this morning when mother noticed she was altered. Patient had dropped food on herself and seemed disoriented. Mother states that she still seems very out of it. On the way to the emergency room patient started complaining of bilateral frontal headache. The headache was sudden in onset but no thunderclap. She describes it as a pressure sensation. Patient denies numbness and weakness as well as vision changes. Mother states she still seems very out of it.. TRAVEL OUTSIDE OF THE [place] 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 Past Surgical History: Reports: Hx Breast Surgery - Breast Reduction, Hx Vascular Surgery - tlsc - Immunizations Immunizations up to date: No Hx Diphtheria, Pertussis, Tetanus Vaccination: No Review of Systems - Review of Systems Constitutional: denies: Chills, Fever Cardiovascular: denies: Chest pain, Dyspnea Gastrointestinal: denies: Nausea, Vomiting Genitourinary: denies: Dysuria, Hematuria Neurological/Psychological: Confusion, Headaches -: Yes All other systems reviewed and negative Physical Exam - Vital signs Vitals: Temp Pulse Resp BP Pulse Ox 97.5 F 74 16 114/65 96 05/20/18 11:26 05/20/18 11:26 05/20/18 11:26 05/20/18 11:26 05/20/18 11:26 - Notes Notes: GENERAL_APPEARANCE: well_nourished, alert, cooperative, no_acute_distress, no_obvious_discomfort. VITALS: reviewed, see vital signs table. HEAD: no_swelling\tenderness on the head. EYES: PERRL, EOMI, conjunctiva_clear. NOSE: no_nasal_discharge. MOUTH: (-)decreased moisture. THROAT: no_tonsilar_inflammation, no_airway_obstruction. no_lymphadenopathy NECK: supple, no_neck_tenderness, (-)thyromegaly. BACK: no_back_tenderness. CHEST_WALL: no_chest_tenderness. LUNGS: no_wheezing, no_rales, no_rhonchi, (-)accessory muscle use, good air exchange bilateral. HEART: normal_rate, normal_rhythm, normal_S1, normal_S2, (-)S3, (-)S4, no_murmur, no_rub. ABDOMEN: normal_BS, soft, no_abd_tenderness, (-)guarding, (-)rebound, no_organomegaly, no_abd_masses. EXTREMITIES: strength 5/5 in all_extremities, good pulses in all_extremities, no_swelling\tenderness in the extremities, no_edema. SKIN: warm, dry, good_color, no_rash. MENTAL_STATUS: speech_clear, oriented_X_3, confused_affect, responds_app ropriately to questions. NEURO: Neg Motor or Sensory Deficits on exam, CN 2-12 intact, DTR 2+ symmetric x 4, No cerbellar signs NIH Stroke Scale/Score (NIHSS) RESULT SUMMARY: 0 points NIH Stroke Scale INPUTS: 1A: Level of consciousness > 0 = Alert; keenly responsive 1B: Ask month and age > 0 = Both questions right 1C: 'Blink eyes' & 'squeeze hands' > 0 = Performs both tasks 2: Horizontal extraocular movements > 0 = Normal 3: Visual echeverria > 0 = No visual loss 4: Facial palsy > 0 = Normal symmetry 5A: Left arm motor drift > 0 = No drift for 10 seconds 5B: Right arm motor drift > 0 = No drift for 10 seconds 6A: Left leg motor drift > 0 = No drift for 5 seconds 6B: Right leg motor drift > 0 = No drift for 5 seconds 7: Limb Ataxia > 0 = No ataxia 8: Sensation > 0 = Normal; no sensory loss 9: Language/aphasia > 0 = Normal; no aphasia 10: Dysarthria > 0 = Normal 11: Extinction/inattention > 0 = No abnormality Course - Re-evaluation Re-evalutation: 05/20/18 11:59 Patient presents with some mild confusion. She is able to answer all her questions well but she is slow to respond and just days. She had went to the doctor a couple days ago for some back pain. I started her on ibuprofen and Robaxin she did take a Robaxin this morning. The patient has no focal neuro or sensory deficits to seems to be all cognitive. She is able to answer orientation questions correctly just is very slow and days. We are going to do a head CT to check for any kind of stroke or [employer] mass or bleed. Get some generalized blood work. Urinalysis. A tox screen. 05/20/18 14:51 I called the [facility] oncology team at the request of the patient. Familiar with the patient. Margoth and Dr Santana. They had nothing to add from our standpoint and agree likely the Robaxin lowered the patient's seizure threshold. My plan since the patient is quickly back to baseline and she had one solitary seizure was to refer her to neurology for outpatient EEG and MRI. Driving until cleared. I will have her discontinue the Robaxin. 05/20/18 15:04 Spoke with the patient and family. Recommend that they follow-up with neurolo gy. They want to go to [facility] neurology. They are already connected with [facility] oncology. They will call and get a referral. I explained to them that she is did not be driving until cleared by neurology. She should have an outpatient MRI and EEG. Again she is to stop the Robaxin. Feel the Robaxin is likely the cause lowering her seizure threshold. - Vital Signs Vital signs: Temp Pulse Resp BP Pulse Ox 97.5 F 73 21 H 111/63 100 05/20/18 11:26 05/20/18 11:54 05/20/18 12:32 05/20/18 12:32 05/20/18 12:32 - Laboratory Result Diagrams: 05/20/18 12:03 05/20/18 12:03 Laboratory results interpreted by me: 05/20/18 05/20/18 05/20/18 12:03 12:03 12:03 RDW 15.0 H Seg Neutrophils % 36.4 L Lymphocytes % 52.8 H ESR 45 H APTT 38.8 H C-React Prot High Sens Salicylates < 1.0 L Acetaminophen < 10 L 05/20/18 12:03 RDW Seg Neutrophils % Lymphocytes % ESR APTT C-React Prot High Sens 7.4945 H Salicylates Acetaminophen Discharge - Discharge Clinical Impression: New onset seizure Condition: Good Disposition: HOME, SELF-CARE Instructions: New Seizure ([facility]) Additional Instructions: Please call [facility] for referral to neurology. You will need to have an evaluation by neurologist. He will likely need to have MRI and an EEG. I feel that this is due to the Robaxin. 1 of the top 3 reactions is seizures. Please stop the Robaxin. Do not take any more of this. He will likely have this in your system for at least 24 hours. Please hydrate. I have called and spoke with your team at [facility]. They are in agreement. There is a possibility you may have a second seizure. Please avoid any stimulation in the next 24-48 hours. Please have someone stay with you at the time. Do not drive until cleared by neurology.
[2018-05-20] MEDS ORDERED: KETOROLAC TROMETHAMINE INJ/PF 30 MG/1 ML SDV IV ONE (12:02)
--- NOTE | 2018-05-20 12:13 | EKG REPORT ---
SEVERITY:- NORMAL ECG - SINUS RHYTHM : Confirmed by: Christiano Hutchinson MD 20-May-2018 12:12:30
[2018-05-20 12:17] LABS: ABSOLUTE EOSINOPHILS # (AUTO) 0.1 10^3/uL (0.0-0.6); ABSOLUTE LYMPHOCYTES (AUTO) 2.6 10^3/uL (0.5-4.7); ABSOLUTE MONOCYTES (AUTO) 0.4 10^3/uL (0.1-1.4); ABSOLUTE NEUT (AUTO) 1.8 10^3/uL (1.7-8.2); BASOPHILS % (AUTO) 0.5 % (0-2); EOSINOPHILS % (AUTO) 2.2 % (0-6); HEMATOCRIT 40.2 % (36.0-47.0); HEMOGLOBIN 13.1 g/dL (12.0-15.5); INTERNATIONAL RATION (INR) 1.01; LYMPHOCYTES % (AUTO) 52.8 % (13-45); MEAN CORPUSCULAR HEMOGLOBIN 27.6 pg (27.0-33.4); MEAN CORPUSCULAR HGB CONC 32.6 g/dL (32.0-36.0); MEAN CORPUSCULAR VOLUME 85 fl (80-97); MONOCYTES % (AUTO) 8.1 % (3-13); PLATELET COUNT 316 10^3/uL (150-450); RED BLOOD COUNT 4.75 10^6/uL (3.72-5.28); SEGMENTED NEUTROPHILS % (AUTO) 36.4 % (42-78); TOTAL CELLS COUNTED % (AUTO) 100 %; WHITE BLOOD COUNT 4.9 10^3/uL (4.0-10.5)
[2018-05-20 12:18] LABS: PARTIAL THROMBOPLASTIN TIME 38.8 SEC (23.5-35.8)
[2018-05-20 12:20] LABS: PROTHROMBIN TIME 13.8 SEC (11.4-15.4)
[2018-05-20] MEDS ORDERED: LORAZEPAM INJ 2 MG/1 ML VIAL ONE (12:36)
[2018-05-20 12:42] LABS: ALANINE AMINOTRANSFERASE 21 U/L (9-52); ALBUMIN 4.3 g/dL (3.5-5.0); ALKALINE PHOSPHATASE 88 U/L (38-126); ANION GAP 6 (5-19); ASPARTATE AMINO TRANSFERASE 29 U/L (14-36); BILIRUBIN,DIRECT 0.2 mg/dL (0.0-0.4); BILIRUBIN,TOTAL 0.4 mg/dL (0.2-1.3); BLOOD UREA NITROGEN 16 mg/dL (7-20); CARBON DIOXIDE 29 mmol/L (22-30); CHLORIDE 104 mmol/L (98-107); CREATINE KINASE 44 U/L (30-135); GLUCOSE 87 mg/dL (75-110); POTASSIUM 4.2 mmol/L (3.6-5.0); TOTAL PROTEIN 8.1 g/dL (6.3-8.2)
[2018-05-20 12:44] LABS: ACETAMINOPHEN < 10 ug/mL (10-30); ALCOHOL < 10 mg/dL (NONE DETECTED); SALICYLATE < 1.0 mg/dL (2.0-20.0)
[2018-05-20] MEDS ORDERED: LORAZEPAM INJ 2 MG/1 ML VIAL IV ONE (12:45)
[2018-05-20 12:57] LABS: CREATINE KINASE MB < 0.22 ng/mL (<4.55); ERYTHROCYTE SEDIMENTATION RATE 45 mm/hr (0-20); TROPONIN I < 0.012 ng/mL
[2018-05-20 14:34] LABS: URINE AMPHETAMINES SCREEN NEGATIVE; URINE BARBITURATES SCREEN NEGATIVE; URINE BENZODIAZEPINES SCREEN NEGATIVE; URINE COCAINE SCREEN NEGATIVE; URINE MARIJUANA (THC) SCREEN NEGATIVE; URINE METHADONE SCREEN NEGATIVE; URINE PHENCYCLIDINE SCREEN NEGATIVE
[2018-05-20 16:05] VITALS: BP 120/70
== END 2018-05-20 16:05 | disposition home or self-care (01) ==
LOC: ER 11:21
DX: R56.9 Unspecified convulsions (principal); R51 Headache; R41.0 Disorientation, unspecified; M54.9 Dorsalgia, unspecified; C95.91 Leukemia, unspecified, in remission; Z94.81 Bone marrow transplant status
CPT/HCPCS: 93005; 99285; 96361; 96374; 36415; 82553; 82962; 80307 ×4; 82550; 85025; 85652; 85610; 85730; 80053; 84484; 86141; 71045; 70450; 93010; J2060; J7030

== ENCOUNTER 2018-05-31 10:41 | Emergency (ER) | payer MEDICARE, MEDICAID ==
[2018-05-31] MEDS ORDERED: ONDANSETRON 4 MG TAB.RAPDIS PO ONE (12:00)
[2018-05-31] MEDS ORDERED: ACETAMINOPHEN 325 MG TABLET PO ONE (12:01)
--- NOTE | 2018-05-31 12:07 | ER Document Report ---
ED Medical Screen (RME) - General Chief Complaint: Vomiting Stated Complaint: VOMITING AND HEADACHE Time Seen by Provider: 05/31/18 11:54 Primary Care Provider: NUSRAT RODGERS FNP-C [Primary Care Provider] - Follow up as needed Mode of Arrival: Wheelchair Notes: Patient presents to the emergency department with complaints of right frontal headache that started this morning upon waking. She describes it as sharp with pressure. Patient reports is different from her typical headaches. She reports it has affected her eyesight and she is experiencing blurred vision. She also reports she experrienced nausea and vomiting since this morning. She is actively vomiting. She has not attempted to eat or drink anything. 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 Patient was evaluated in this emergency department last week for altered mental status, seizure. A CT was done at that time. The patient was instructed to follow-up with [facility] neurology. She reports she is still waiting for an appointment. I have greeted and performed a rapid initial assessment of this patient. A comprehensive ED assessment and evaluation of the patient, analysis of test results and completion of the medical decision making process will be conducted by additional ED providers. TRAVEL OUTSIDE OF THE [place] 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 Past Surgical History: Reports: Hx Breast Surgery - Breast Reduction, Hx Vascular Surgery - tlsc - Immunizations Immunizations up to date: No Hx Diphtheria, Pertussis, Tetanus Vaccination: No Physical Exam - Vital signs Vitals: Temp Pulse Resp BP Pulse Ox 97.5 F 71 20 115/78 98 05/31/18 11:16 05/31/18 11:16 05/31/18 11:16 05/31/18 11:16 05/31/18 11:16 Course - Vital Signs Vital signs: Temp Pulse Resp BP Pulse Ox 97.5 F 71 20 115/78 98 05/31/18 11:16 05/31/18 11:16 05/31/18 11:16 05/31/18 11:16 05/31/18 11:16 Doctor's Discharge - Discharge Referrals: NUSRAT RODGERS, SECURITY SHIFT SUPERVISOR-C [Primary Care Provider] - Follow up as needed
[2018-05-31 12:33] LABS: ABSOLUTE EOSINOPHILS # (AUTO) 0.1 10^3/uL (0.0-0.6); ABSOLUTE LYMPHOCYTES (AUTO) 1.8 10^3/uL (0.5-4.7); ABSOLUTE MONOCYTES (AUTO) 0.4 10^3/uL (0.1-1.4); ABSOLUTE NEUT (AUTO) 3.5 10^3/uL (1.7-8.2); BASOPHILS % (AUTO) 0.2 % (0-2); EOSINOPHILS % (AUTO) 1.4 % (0-6); HEMATOCRIT 37.9 % (36.0-47.0); HEMOGLOBIN 12.4 g/dL (12.0-15.5); LYMPHOCYTES % (AUTO) 31.4 % (13-45); MEAN CORPUSCULAR HEMOGLOBIN 27.7 pg (27.0-33.4); MEAN CORPUSCULAR HGB CONC 32.7 g/dL (32.0-36.0); MEAN CORPUSCULAR VOLUME 85 fl (80-97); PLATELET COUNT 300 10^3/uL (150-450); RED BLOOD COUNT 4.47 10^6/uL (3.72-5.28); TOTAL CELLS COUNTED % (AUTO) 100 %; WHITE BLOOD COUNT 5.8 10^3/uL (4.0-10.5)
[2018-05-31 12:51] LABS: ALANINE AMINOTRANSFERASE 17 U/L (9-52); ALBUMIN 4.3 g/dL (3.5-5.0); ALKALINE PHOSPHATASE 77 U/L (38-126); ANION GAP 7 (5-19); ASPARTATE AMINO TRANSFERASE 18 U/L (14-36); BILIRUBIN,DIRECT 0.3 mg/dL (0.0-0.4); BILIRUBIN,TOTAL 0.4 mg/dL (0.2-1.3); BLOOD UREA NITROGEN 15 mg/dL (7-20); CALCIUM 9.8 mg/dL (8.4-10.2); CARBON DIOXIDE 28 mmol/L (22-30); CHLORIDE 105 mmol/L (98-107); GLUCOSE 114 mg/dL (75-110); LIPASE 45.7 U/L (23-300); POTASSIUM 4.1 mmol/L (3.6-5.0); SODIUM 139.6 mmol/L (137-145); TOTAL PROTEIN 7.6 g/dL (6.3-8.2)
[2018-05-31] MEDS ORDERED: METOCLOPRAMIDE HCL INJ/PF 10 MG/2 ML SDV IV ONE (13:18)
[2018-05-31] MEDS ORDERED: NORMAL SALINE 1000 ML 1,000 ML IV ONE (13:18)
[2018-05-31] MEDS ORDERED: DIPHENHYDRAMINE HCL 50 MG/ML VIAL IV ONE (13:18)
--- NOTE | 2018-05-31 13:21 | ER Document Report ---
ED General - General Chief Complaint: Vomiting Stated Complaint: VOMITING AND HEADACHE Time Seen by Provider: 05/31/18 11:54 Primary Care Provider: NUSRAT RODGERS FNP-C [Primary Care Provider] - Follow up as needed Mode of Arrival: Wheelchair TRAVEL OUTSIDE OF THE [place] IN LAST 30 DAYS: No - HPI Notes: Patient is a 27-year-old female that presents to the emergency department for chief complaint of headache. Patient reports headache over her right eye that began this morning. It was gradual in onset and has progressively worsened. She has associated photophobia and phonophobia. Patient received Tylenol and Zofran in triage and reports no improvement of her symptoms. She states she has nausea with a headache. She denies any vision changes numbness, weakness, fevers, neck pain and stiffness. She does have a history of leukemia and is in remission. Patient is scheduled to see [facility] neurology after experiencing seizure last week. She denies any repeat seizure activity since her previous visit. Past Medical History: Leukemia Past Surgical History: Bone marrow transplant Social History: Denies drugs alcohol and tobacco Family History: Reviewed and noncontributory for presenting illness Allergies: Reviewed, see documented allergy list. REVIEW OF SYSTEMS: CONSTITUTIONAL : No fever No chills No diaphoresis No recent illness EENT: No vision changes No congestion No sore throat CARDIOVASCULAR: No chest pain No palpitations RESPIRATORY: No shortness of breath No cough No difficulty breathing GASTROINTESTINAL: No abdominal pain No nausea No vomiting No diarrhea GENITOURINARY: No dysuria No hematuria No difficulty urinating MUSCULOSKELETAL: No back pain No leg pain No arm pain SKIN: No rashes No lesions LYMPHATIC: No swollen, enlarged glands. NEUROLOGICAL: No lightheadedness headache No weakness No paresthesias PSYCHIATRIC: No anxiety No depression PHYSICAL EXAMINATION: Vital signs reviewed, nursing noted reviewed. GENERAL: Well-appearing, well-nourished and in no acute distress. HEAD: Atraumatic, normocephalic. EYES: Eyes appear normal, extraocular movements intact, sclera anicteric, conjunctiva are normal. ENT: nares patent, oropharynx clear without exudates. Moist mucous membranes. NECK: Normal range of motion, supple without lymphadenopathy LUNGS: Breath sounds clear to auscultation bilaterally and equal. No wheezes rales or rhonchi. HEART: Regular rate and rhythm without murmurs ABDOMEN: Soft, nontender, normoactive bowel sounds. No rebound, guarding, or rigidity. No masses appreciated. EXTREMITIES: Nontender, good range of motion, no pitting or edema. NEUROLOGICAL: No focal neurological deficits. Moves all extremities spontaneously Motor and sensory grossly intact on exam. PSYCH: Normal mood, normal affect. 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 Nursing notes reviewed. Patient is afebrile and nontoxic in appearance. Her lab work is unremarkable. She has a history of recent seizures and states this headache feels different therefore CT scan was ordered to evaluate for possible mass lesion or bleeding. There is no acute intracranial process on her CT scan however it does show worsening sinusitis on the right. This is the side of her pain. Patient will be started on Augmentin for acute sinusitis and headache. She was feeling improved. She will be discharged home in stable condition. Laboratory 05/31/18 05/31/18 05/31/18 12:17 12:17 12:17 WBC 5.8 RBC 4.47 Hgb 12.4 Hct 37.9 MCV 85 MCH 27.7 MCHC 32.7 RDW 15.0 H Plt Count 300 Seg Neutrophils % 60.0 Lymphocytes % 31.4 Monocytes % 7.0 Eosinophils % 1.4 Basophils % 0.2 Absolute Neutrophils 3.5 Absolute Lymphocytes 1.8 Absolute Monocytes 0.4 Absolute Eosinophils 0.1 Absolute Basophils 0.0 Sodium 139.6 Potassium 4.1 Chloride 105 Carbon Dioxide 28 Anion Gap 7 BUN 15 Creatinine 0.39 L Est GFR ( Amer) > 60 Est GFR (Non-Af Amer) > 60 Glucose 114 H Calcium 9.8 Total Bilirubin 0.4 Direct Bilirubin 0.3 Neonat Total Bilirubin Not Reportable Neonat Direct Bilirubin Not Reportable Neonat Indirect Bili Not Reportable AST 18 ALT 17 Alkaline Phosphatase 77 Total Protein 7.6 Albumin 4.3 Lipase 45.7 Serum HCG, Qual NEGATIVE Head CT 05/31/18 13:18 IMPRESSION: Mucosal thickening and fluid involving the right maxillary and sphenoid sinus and ethmoid air cells compatible with acute sinus disease. Increased fluid within the right maxillary sinus compared to recent prior exam. No additional evidence of acute intracranial process. EVIDENCE OF ACUTE STROKE: NO. - Vital Signs Vital signs: Temp Pulse Resp BP Pulse Ox 97.5 F 71 20 115/78 98 05/31/18 11:16 05/31/18 11:16 05/31/18 11:16 05/31/18 11:16 05/31/18 11:16 - Laboratory Result Diagrams: 05/31/18 12:17 05/31/18 12:17 Laboratory results interpreted by me: 05/31/18 05/31/18 12:17 12:17 RDW 15.0 H Creatinine 0.39 L Glucose 114 H Discharge - Discharge Clinical Impression: Sinusitis Qualifiers: Sinusitis location: unspecified location Chronicity: acute Recurrence: non- recurrent Qualified Code(s): J01.90 - Acute sinusitis, unspecified Headache Qualifiers: Headache type: unspecified Headache chronicity pattern: acute headache Intractability: not intractable Qualified Code(s): R51 - Headache Condition: Stable Disposition: HOME, SELF-CARE Instructions: Sinusitis ([facility]) Additional Instructions: Please return to the emergency department if you have any worsening, or concern of your symptoms. Please return to the emergency department if you develop chest pain, difficulty breathing, severe abdominal pain, or ongoing vomiting. Please follow-up with your primary care physician in 2-3 days and any other recommended physicians. If prescribed, take all medications as directed. If you have any questions or concerns do not hesitate to return the emergency department for evaluation. Prescriptions: Amox Tr/Potassium Clavulanate [Augmentin 875-125 Tablet] 1 tab PO BID 10 Days tablet Referrals: NUSRAT RODGERS FNP-C [Primary Care Provider] - Follow up in 3-5 days
[2018-05-31] MEDS ORDERED: DEXAMETHASONE SOD PHOS INJ 10 MG/1 ML VIAL IV ONE (14:02)
--- NOTE | 2018-05-31 14:18 | RADIOLOGY REPORT (SQ) ---
EXAM DESCRIPTION: CT HEAD WITHOUT COMPLETED DATE/TIME: 05/31/2018 2:04 pm REASON FOR STUDY: headache COMPARISON: 05/20/2018 TECHNIQUE: Axial images acquired through the brain without intravenous contrast. Images reviewed wi th bone, brain and subdural windows. Additional sagittal and coronal reconstructions were generated. Images stored on PACS. All CT scanners at this facility use dose modulation, iterative reconstruction, and/or weight based d osing when appropriate to reduce radiation dose to as low as reasonably achievable (ALARA). [facility]: Dose Right [facility]: CareDose [facility]: Dose Right [facility]: Teradose 4D [facility]: [employer] RADIATION DOSE: CT Rad equipment meets quality standard of care and radiation dose reduction techniq ues were employed. CTDIvol: 53.2 mGy. DLP: 1070 mGy-cm. mGy. LIMITATIONS: None. FINDINGS: VENTRICLES: Normal size and contour. CEREBRUM: No masses. No hemorrhage. No midline shift. No evidence for acute infarction. Normal gra y/white matter differentiation. No areas of low density in the white matter. CEREBELLUM: No masses. No hemorrhage. No alteration of density. No evidence for acute infarction. EXTRAAXIAL SPACES: No fluid collections. No masses. ORBITS AND GLOBE: No intra- or extraconal masses. Normal contour of globe without masses. CALVARIUM: No fracture. PARANASAL SINUSES: There is mucosal thickening involving the right ethmoid air cells, right sphenoid sinus and maxillary sinuses. Increase volume of fluid within the right maxillary sinus compared to r ecent prior exam. Remaining paranasal sinuses are well aerated. SOFT TISSUES: No mass or hematoma. OTHER: No other significant finding. IMPRESSION: Mucosal thickening and fluid involving the right maxillary and sphenoid sinus and ethmoi d air cells compatible with acute sinus disease. Increased fluid within the right maxillary sinus co mpared to recent prior exam. No additional evidence of acute intracranial process. EVIDENCE OF ACUTE STROKE: NO. COMMENT: Quality ID # [id number]: Final reports with documentation of one or more dose reduction techniques (e.g., Automated exposure control, adjustment of the mA and/or kV according to patient size, use of iterative reconstruction technique) TECHNICAL DOCUMENTATION: JOB ID: [id number] [employer]- All Rights Reserved Reading location - IP/workstation name: [facility]
[2018-05-31] MEDS ORDERED: AMOXICILLIN TR/POT CLAVULANATE 500-125 MG TAB PO ONE (14:31)
[2018-05-31] MEDS ORDERED: AMOXICILLIN TRIHYD 250 MG CAPSULE PO ONE (14:31)
[2018-05-31 14:47] VITALS: BP 112/75
== END 2018-05-31 14:46 | disposition home or self-care (01) ==
LOC: ER 10:41
DX: J01.90 Acute sinusitis, unspecified (principal); R11.10 Vomiting, unspecified; R51 Headache; Z88.6 Allergy status to analgesic agent; Z85.6 Personal history of leukemia
CPT/HCPCS: 99284; 96361; 96374; 96375; 36415; 83690; 84703; 85025; 80053; 70450; A9270 ×4; J1200; J2765; J7030; J1100; J3490; S0119

== ENCOUNTER 2018-06-06 20:25 | Emergency (ER) | payer MEDICARE, MEDICAID ==
--- NOTE | 2018-06-07 01:01 | ER Document Report ---
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 Patient states she remembers being in her mother's house and walking to the restroom, apparently her mother states she had a seizure that lasted approximately 2-3 minutes, was postictal until EMS arrived. Her next memory was being at the hospital. Patient states she currently feels slightly sluggish but otherwise is back to her normal self. She denies recent fevers or chills, no head injuries, no vision changes, no ataxia. This is the second seizure the patient has had, she presented 2 weeks ago for her first seizure where head CT was read as negative. She has informed her [facility] physicians and they are attempting to get her neurology follow-up "as soon as they can." Onset: Sudden Provocation: Unknown Quality: Shaking for 2-3 minutes Radiation: Global Severity: Moderate Timing: Episodic lasting 2-3 minutes with complete resolution REVIEW OF SYSTEMS: CONSTITUTIONAL : Denies fever or chills, no sweats. Denies recent illness. EENT: Denies eye, ear, throat, or mouth pain or symptoms. Denies nasal or sinus congestion. CARDIOVASCULAR: Denies chest pain. RESPIRATORY: Denies cough, cold, or chest congestion. Denies shortness of breath, difficulty breathing, or wheezing. GASTROINTESTINAL: Denies abdominal pain. Denies nausea, vomiting, or diarrhea. Denies constipation. GENITOURINARY: Denies difficulty urinating, painful urination, burning, frequency, or blood in urine. FEMALE GENITOURINARY: Denies vaginal bleeding, abnormal or irregular periods. Last menstrual period MUSCULOSKELETAL: Denies neck or back pain or joint pain or swelling. SKIN: Denies rash or skin lesions. HEMATOLOGIC : Denies easy bruising or bleeding. LYMPHATIC: Denies swollen, enlarged glands. NEUROLOGICAL: Positive seizure. Denies altered mental status or loss of consciousness. Denies headache. Denies weakness or paralysis or loss of use of either side. Denies problems with gait or speech. Denies sensory or motor loss. PSYCHIATRIC: Denies anxiety or stress or depression. All other systems reviewed and negative. PHYSICAL EXAMINATION: GENERAL: Well-appearing, well-nourished and in no acute distress. HEAD: Atraumatic, normocephalic. No scalp deformity, depression, or crepitance. EYES: Pupils are 3 mm and equal/round/reactive to light, extraocular movements intact, sclera anicteric, conjunctiva are normal. ENT: Nares patent bilaterally, oropharynx clear without exudates or palatal petechia. Moist mucous membranes. No tonsil hypertrophy. NECK: Normal range of motion, supple without lymphadenopathy. LUNGS: Breath sounds present, equal, and clear to auscultation bilaterally. No wheezes, rales, or rhonchi. HEART: Regular rate and rhythm without murmurs, rubs, or gallops. 2+ peripheral pulses. Normal capillary refill. ABDOMEN: Soft, nontender, nondistended. Normoactive bowel sounds. No guarding, no rebound. No masses appreciated. BACK: Normal contour, no midline tenderness. Rectal exam deferred. PELVC: Deferred. EXTREMITIES: Normal range of motion, no pitting or edema. No cyanosis. NEUROLOGICAL: No focal neurological deficits. Moves all extremities spontaneo usly and on command. PSYCH: Normal mood, normal affect. No suicidal thoughts/ideations. No homocid al thoughts/ideations. No hallucinations. SKIN: Warm, dry, normal turgor, no rashes or lesions noted. ASSESSMENT AND PLAN: This patient is a 27-year-old female who presents with second seizure, the first one approximately 2 weeks ago of unknown etiology although head CT was negative. Unsure if this is related to history of CML status post bone marrow transplant however this is unlikely. Patient is nontoxic-appearing without fevers, no recent head injury/trauma, no history of alcohol or drug abuse. Likewise meningitis also less likely given benign appearance in the absence of related sy mptoms or history. 1. Will load with oral Keppra 1000 mg. 2. Will reassess after labs, urine, and period of observation. TRAVEL OUTSIDE OF THE [place] IN LAST 30 DAYS: No - Related Data Allergies/Adverse Reactions: ketorolac [From Toradol] Allergy (Verified 05/31/18 10:42) methocarbamol [From Robaxin] Allergy (Verified 05/31/18 10:42) ibuprofen Adverse Reaction (Verified 05/28/18 15:29) Past Medical History - General Information source: Patient - Social History Smoking Status: Never Smoker Chew tobacco use (# tins/day): No Frequency of alcohol use: None Drug Abuse: None Lives with: Family Family History: None Patient has suicidal ideation: No Patient has homicidal ideation: No - Past Medical History Cardiac Medical History: Reports: None Pulmonary Medical History: Reports: None EENT Medical History: Reports: None Neurological Medical History: Reports: None Endocrine Medical History: Reports: None Renal/ Medical History: Reports: None. Denies: Hx Peritoneal Dialysis Malignancy Medical History: Reports: Hx Leukemia - CML GI Medical History: Reports: None Musculoskeletal Medical History: Reports None Skin Medical History: Reports None Psychiatric Medical History: Reports: None Traumatic Medical History: Reports: None Infectious Medical History: Reports: None Past Surgical History: Reports: Hx Breast Surgery - Breast Reduction, Hx Vascular Surgery - tlsc - Immunizations Immunizations up to date: No Hx Diphtheria, Pertussis, Tetanus Vaccination: No Physical Exam - Vital signs Vitals: Temp Pulse Resp BP Pulse Ox 98.0 F 78 16 107/66 99 06/06/18 20:58 06/06/18 20:58 06/06/18 20:58 06/06/18 20:58 06/06/18 20:58 Course - Re-evaluation Re-evalutation: 06/07/18 05:48 Labs are grossly unremarkable. Urinalysis reveals evidence of a urinary tract infection that is nitrite positive. Patient is now mentating at her baseline. She will be discharged home with return precautions and follow-up with her neurologist. Patient voices both understanding and agreeing with the plan. - Vital Signs Vital signs: Temp Pulse Resp BP Pulse Ox 98.2 F 67 16 106/61 100 06/07/18 01:24 06/07/18 01:24 06/07/18 05:01 06/07/18 05:01 06/07/18 05:01 - Laboratory Result Diagrams: 06/06/18 20:00 06/07/18 02:20 Laboratory results interpreted by me: 06/06/18 06/07/18 06/07/18 20:00 02:20 03:00 RDW 15.2 H Seg Neuts % (Manual) 30 L Lymphocytes % (Manual) 64 H Abs Lymphs (Manual) 6.1 H Creatinine 0.44 L Urine Blood SMALL H Urine Nitrite POSITIVE H Ur Leukocyte Esterase MODERATE H - EKG Interpretation by Me EKG shows normal: Sinus rhythm Rate: Normal Rhythm: No: NSR, SVT, Arrthymia, A.Fib, A.Flutter, with a 2:1 Block, V.Tach, Torsades, V. Fib, MAT, PVC's, APC's, Other Wellman/QRS: No: Right axis deviation, Left axis deviation, RBBB, LBBB, IVCD, LAHB/LAFB, LPHB/LPFB, Bifasicular block Voltage: No: Increased voltage, Consistant with LVH, Decreased voltage, Throughout, Limb leads P Waves: No: CONCHA, LAE, Absent, AV Dissociation, Other Heart block present: No: 1st Degree, Mobitz 1, Mobitz 2, CHB (3rd degree block) When compared to previous EKG there are: No significant change Discharge - Discharge Clinical Impression: Seizure UTI (urinary tract infection) Qualifiers: Urinary tract infection type: acute cystitis Hematuria presence: without hematuria Qualified Code(s): N30.00 - Acute cystitis without hematuria Condition: Good Disposition: HOME, SELF-CARE Instructions: Urinary Tract Infection ([facility]), New Seizure ([facility]) Additional Instructions: You have been evaluated in the Emergency Department for seizure and a urinary tract infection. Please follow-up with your primary physician and a neurologist as instructed. Return to the Emergency Department if you experience high fevers, confusion, difficulty walking, or any other concerning symptoms. It is important that you did not operate a motor vehicle or heavy machinery until evaluated by a neurologist. Prescriptions: Ciprofloxacin HCl [Cipro 500 mg Tablet] 500 mg PO BID #20 tablet Levetiracetam [Keppra 500 mg Tablet] 500 mg PO Q12 #60 tablet Referrals: NUSRAT RODGERS FNP-C [Primary Care Provider] - Follow up as needed Print Language: Austrian
[2018-06-07 02:25] LABS: HEMATOCRIT 40.2 % (36.0-47.0); HEMOGLOBIN 13.1 g/dL (12.0-15.5); MEAN CORPUSCULAR HEMOGLOBIN 28.2 pg (27.0-33.4); MEAN CORPUSCULAR HGB CONC 32.6 g/dL (32.0-36.0); MEAN CORPUSCULAR VOLUME 87 fl (80-97); PLATELET COUNT 341 10^3/uL (150-450); RED BLOOD COUNT 4.65 10^6/uL (3.72-5.28); RED CELL DISTRIBUTION WIDTH 15.2 % (11.5-14.0); WHITE BLOOD COUNT 9.6 10^3/uL (4.0-10.5)
[2018-06-07 02:40] LABS: ALANINE AMINOTRANSFERASE 16 U/L (9-52); ALBUMIN 4.3 g/dL (3.5-5.0); ALKALINE PHOSPHATASE 67 U/L (38-126); ANION GAP 9 (5-19); ASPARTATE AMINO TRANSFERASE 16 U/L (14-36); BILIRUBIN,DIRECT 0.2 mg/dL (0.0-0.4); BILIRUBIN,TOTAL 0.4 mg/dL (0.2-1.3); BLOOD UREA NITROGEN 17 mg/dL (7-20); CALCIUM 9.9 mg/dL (8.4-10.2); CARBON DIOXIDE 28 mmol/L (22-30); CHLORIDE 104 mmol/L (98-107); GLUCOSE 98 mg/dL (75-110); POTASSIUM 4.2 mmol/L (3.6-5.0); SODIUM 140.8 mmol/L (137-145); TOTAL PROTEIN 7.4 g/dL (6.3-8.2)
[2018-06-07] MEDS ORDERED: LEVETIRACETAM 500 MG TABLET PO ONE (02:45)
[2018-06-07 02:52] LABS: ABSOLUTE LYMPHOCYTES# (MANUAL) 6.1 10^3/uL (0.5-4.7); ABSOLUTE MONOCYTES # (MANUAL) 0.5 10^3/uL (0.1-1.4); ABSOLUTE NEUTROPHILS# (MANUAL) 2.9 10^3/uL (1.7-8.2); ANISOCYTOSIS SLIGHT; BASOPHILS % (MANUAL) 0 % (0-2); EOSINOPHILS % (MANUAL) 1 % (0-6); LYMPHOCYTES % (MANUAL) 64 % (13-45); MONOCYTES % (MANUAL) 5 % (3-13); PLATELET COMMENT ADEQUATE; PLATELET LARGE PRESENT; SCHISTOCYTES SLIGHT; SEGMENTED NEUTROPHILS % (MAN) 30 % (42-78); TOTAL CELLS COUNTED 100; TOXIC VACUOLATION PRESENT
[2018-06-07 03:21] LABS: APPEARANCE,URINE SLIGHTLY-CLOUDY; BILIRUBIN,URINE NEGATIVE (NEGATIVE); COLOR,URINE YELLOW; GLUCOSE, URINE NEGATIVE (NEGATIVE); KETONES,URINE NEGATIVE (NEGATIVE); LEUKOCYTE ESTERASE,URINE MODERATE (NEGATIVE); NITRITE,URINE POSITIVE (NEGATIVE); PROTEIN,URINE NEGATIVE (NEGATIVE); URINE SPECIFIC GRAVITY 1.025; UROBILINOGEN,URINE NEGATIVE mg/dL (<2.0)
[2018-06-07 03:37] LABS: URINE AMPHETAMINES SCREEN NEGATIVE; URINE BARBITURATES SCREEN NEGATIVE; URINE BENZODIAZEPINES SCREEN NEGATIVE; URINE COCAINE SCREEN NEGATIVE; URINE MARIJUANA (THC) SCREEN NEGATIVE; URINE METHADONE SCREEN NEGATIVE; URINE PHENCYCLIDINE SCREEN NEGATIVE
[2018-06-07 07:03] VITALS: BP 94/68
--- NOTE | 2018-06-07 07:36 | EKG REPORT ---
SEVERITY:- BORDERLINE ECG - SINUS RHYTHM PROBABLE LEFT ATRIAL ABNORMALITY : Confirmed by: Christiano Hutchinson MD 07-Jun-2018 07:36:09
== END 2018-06-07 06:52 | disposition home or self-care (01) ==
LOC: ER 20:25
DX: R56.9 Unspecified convulsions (principal); N30.00 Acute cystitis without hematuria
CPT/HCPCS: 93005; 99284; 36415; 85025; 81025; 80053; 81001; 80307; 93010; A9270

== ENCOUNTER 2018-06-20 19:43 | Emergency (ER) | payer MEDICARE, MEDICAID ==
[2018-06-20] MEDS ORDERED: DEXAMETHASONE SOD PHOS INJ 10 MG/1 ML VIAL IV ONE (20:27)
[2018-06-20] MEDS ORDERED: NORMAL SALINE 1000 ML 1,000 ML IV ONE (20:27)
[2018-06-20] MEDS ORDERED: METOCLOPRAMIDE HCL INJ/PF 10 MG/2 ML SDV IV ONE (20:27)
[2018-06-20] MEDS ORDERED: MAGNESIUM SULFATE/D5W 1 GM/100 ML RTUPB IV ONE (20:28)
--- NOTE | 2018-06-20 20:29 | ER Document Report ---
ED General - General Chief Complaint: Headache Stated Complaint: HEADACHE Time Seen by Provider: 06/20/18 20:09 Primary Care Provider: NUSRAT RODGERS FNP-C [Primary Care Provider] - Follow up as needed Notes: Patient is a 27-year-old female with recent diagnosis of seizures that presents to the emergency department for chief complaint of headache. 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 She is been having headaches ever since having a seizure, on and off but they have been more intense over the past week and worse today so she decided come to the emergency department. She has associated photophobia, describes a headache is holocephalic, and currently is a 9 out of 10. She also had some numbness in her left arm, which has since resolved. Mother also reports that she is had some confusion today, and over the last few days has been walking into things and seemingly off balance. Denies noting any weakness in any extremity, denies having any blurred vision associated with the photophobia. She denies having any chest pain, shortness of breath, difficulty breathing, weakness, slurred speech, or difficulty speaking. 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 REVIEW OF SYSTEMS: Other than noted above, the 12 point review of systems was reviewed with the patient and were negative, all pertinent findings are included in the HPI. PHYSICAL EXAMINATION: Vital signs reviewed, nursing noted reviewed. GENERAL: She appears uncomfortable, but in no acute distress HEAD: Atraumatic, normocephalic. EYES: Eyes appear normal, extraocular movements intact, sclera anicteric, conjunctiva are normal. PERRLA ENT: nares patent, oropharynx clear without exudates. Moist mucous membranes. NECK: Normal range of motion, supple without lymphadenopathy LUNGS: Breath sounds clear to auscultation bilaterally and equal. No wheezes ra les or rhonchi. HEART: Regular rate and rhythm without murmurs ABDOMEN: Soft, nontender, normoactive bowel sounds. No rebound, guarding, or rigidity. No masses appreciated. EXTREMITIES: Nontender, good range of motion, no pitting or edema. NEUROLOGICAL: No focal neurological deficits. Moves all extremities spontaneously Motor and sensory grossly intact on exam. NIH stroke scale score: 0 PSYCH: Normal mood, normal affect. SKIN: Warm, Dry, normal turgor, no rashes or lesions noted on exposed skin TRAVEL OUTSIDE OF THE [place] IN LAST 30 DAYS: No - Related Data Allergies/Adverse Reactions: ketorolac [From Toradol] Allergy (Verified 05/31/18 10:42) methocarbamol [From Robaxin] Allergy (Verified 05/31/18 10:42) ibuprofen Adverse Reaction (Verified 05/28/18 15:29) Past Medical History - Social History Smoking Status: Never Smoker Family History: Reviewed & Not Pertinent Neurological Medical History: Reports: Hx Seizures - first seizure Renal/ Medical History: Denies: Hx Peritoneal Dialysis Malignancy Medical History: Reports: Hx Leukemia - CML Past Surgical History: Reports: Hx Breast Surgery - Breast Reduction, Hx Vascular Surgery - tlsc - Immunizations Immunizations up to date: No Hx Diphtheria, Pertussis, Tetanus Vaccination: No Physical Exam - Vital signs Vitals: Temp Pulse Resp BP Pulse Ox 97.9 F 60 17 115/71 99 06/20/18 19:55 06/20/18 19:55 06/20/18 19:55 06/20/18 19:55 06/20/18 19:55 Course - Re-evaluation Re-evalutation: Patient seen and examined, vital signs reviewed. On exam patient is complaining of headache and photophobia, no focal neurological deficits. Patient given migraine cocktail including Reglan, dexamethasone, magnesium and IV fluids. Patient was reevaluated, but still having headache, and in the same severity, this point will order CT imaging of the head, and CT angiogram of the head, to evaluate for intracranial pathology. HCG negative. Blood work otherwise unremarkable. Patient's headache remained essentially the same, she was given some Fioricet, which gave her some improvement, CT of the head did demonstrate diffuse cerebral edema, with loss of araya-white differentiation, and concern for cerebellar tonsils extending towards C1. These findings were discussed with the radiologist. The CTA was negative for any signs of aneurysm. At this point I felt the patient to be transferred to tertiary facility, she was seen at [facility] in the past for her cancer treatments, I discussed this with the patient's mother and the patient and they are agreeable with this plan of care, I discussed the case with Dr. Sánchez, with oncology, who felt that the patient should go to the emergency department, to have assessment from neurology and neurosurgery prior to being accepted to the oncology service, which I agreed with, she would likely need at least a stepdown bed. Discussed with transfer center, to obtain ED physician to facilitate to transfer the patient, they said they were currently in signout, this is at 2300 hrs., and will call back. I did discuss the case with the ED attending Dr. Frank Torres who did accept the patient to be transferred to the emergency department from our emergency department to be further evaluated. [id number] Patient reexamined, remains hemodynamically stable at this time, and stable for transport, all questions answered. Laboratory 06/20/18 06/20/18 06/20/18 20:20 20:20 20:20 WBC 4.8 RBC 4.53 Hgb 12.7 Hct 38.4 MCV 85 MCH 28.1 MCHC 33.1 RDW 15.0 H Plt Count 291 Seg Neutrophils % 36.4 L Lymphocytes % 53.3 H Monocytes % 9.1 Eosinophils % 1.0 Basophils % 0.2 Absolute Neutrophils 1.8 Absolute Lymphocytes 2.6 Absolute Monocytes 0.4 Absolute Eosinophils 0.0 Absolute Basophils 0.0 Sodium 142.1 Potassium 3.8 Chloride 102 Carbon Dioxide 33 H Anion Gap 7 BUN 11 Creatinine 0.52 Est GFR ( Amer) > 60 Est GFR (Non-Af Amer) > 60 Glucose 90 Calcium 10.0 Serum HCG, Qual NEGATIVE Head CT 06/20/18 21:05 IMPRESSION: Findings are worrisome for diffuse cerebral parenchymal edema. MRI may provide additional information. No significant vascular abnormality in the vessels of the [place]. I discussed these critical findings with Dr. Lee at 2122 hours on 06/20/2018. Head CTA 06/20/18 21:05 IMPRESSION: Findings are worrisome for diffuse cerebral parenchymal edema. MRI may provide additional information. No significant vascular abnormality in the vessels of the [place]. - Vital Signs Vital signs: Temp Pulse Resp BP Pulse Ox 97.9 F 60 17 115/71 99 06/20/18 19:55 06/20/18 19:55 06/20/18 19:55 06/20/18 19:55 06/20/18 19:55 - Laboratory Result Diagrams: 06/20/18 20:20 06/20/18 20:20 Laboratory results interpreted by me: 06/20/18 06/20/18 20:20 20:20 RDW 15.0 H Seg Neutrophils % 36.4 L Lymphocytes % 53.3 H Carbon Dioxide 33 H Critical Care Note - Critical Care Note Total time excluding time spent on procedures (mins): 35 Comments: Critical care time 35 minutes exclusive from separate billable procedures for a patient requiring complex medical decision making, and high potential for clinical deterioration. In a patient with diffuse cerebral edema, requiring close monitoring, and high potential for deterioration. Time spent obtaining history from patient or surrogate, discussions with consultants, development of treatment plan with patient or surrogate, evaluation of patient's response to treatment, examination of patient, ordering and performing treatments and interventions, ordering and review of laboratory studies, re-evaluation of patient's condition, ordering and review of radiographic studies and review of old charts Discharge - Discharge Clinical Impression: Diffuse cerebral edema, Ataxia Cephalgia Qualifiers: Headache type: unspecified Headache chronicity pattern: acute headache Intractability: not intractable Qualified Code(s): R51 - Headache Condition: Serious Disposition: [place] Referrals: NUSRAT RODGERS FNP-C [Primary Care Provider] - Follow up as needed
[2018-06-20] MEDS ORDERED: BUTALB/ACETAMINOPHEN/CAFFEINE 1 TAB EACH PO ONE (21:05)
[2018-06-20 21:36] LABS: ANION GAP 7 (5-19); BLOOD UREA NITROGEN 11 mg/dL (7-20); CARBON DIOXIDE 33 mmol/L (22-30); CHLORIDE 102 mmol/L (98-107); GLUCOSE 90 mg/dL (75-110); POTASSIUM 3.8 mmol/L (3.6-5.0); SODIUM 142.1 mmol/L (137-145)
--- NOTE | 2018-06-20 22:19 | RADIOLOGY REPORT (SQ) ---
EXAM DESCRIPTION: CT HEAD ANGIOGRAPHY WITHOUT THEN WITH IV CONTRAST COMPLETED DATE/TME: 06/20/2018 21:05 CLINICAL HISTORY: 27 years, Female, severe headache, left arm numbness CLINICAL HISTORY: severe headache, left arm numbness COMPARISON: None Available TECHNIQUE: Contiguous axial CT images of the head were obtained. Images were obtained prior to and following intravenous contrast administration. Coronal and sagittal reconstructions were then created along with MIPs through the vessels of [place]. This exam was performed according to our departmental dose-optimization program, which includes automated exposure control, adjustment of the mA and/or kV according to patient size and/or use of iterative reconstruction technique. NASCET criteria utilized for the evaluation of any stenotic lesions. FINDINGS: There is poor araya-white differentiation throughout the cerebral parenchyma. The basal cisterns and extra-axial CSF spaces are diffusely effaced and there is crowding of structures at the foramen magnum. The lateral ventricles are borderline small. The third ventricle and fourth ventricle are small. The cerebellar tonsils extend down to the level of the posterior ring of C1. The paranasal sinuses are clear. No acute abnormalities of the bones is seen. There is no evidence of flow-limiting stenosis, vascular malformation, or aneurysm in the vessels of the [place]. IMPRESSION: Findings are worrisome for diffuse cerebral parenchymal edema. MRI may provide additional information. No significant vascular abnormality in the vessels of the [place].
--- NOTE | 2018-06-20 22:32 | RADIOLOGY REPORT (SQ) ---
EXAM DESCRIPTION: CT HEAD WITHOUT IV CONTRAST COMPLETED DATE/TME: 06/20/2018 21:05 CLINICAL HISTORY: 27 years, Female, headache COMPLETED DATE/TME: 06/20/2018 21:05 CLINICAL HISTORY: 27 years, Female, severe headache, left arm numbness CLINICAL HISTORY: severe headache, left arm numbness COMPARISON: None Available TECHNIQUE: Contiguous axial CT images of the head were obtained. Images were obtained prior to and following intravenous contrast administration. Coronal and sagittal reconstructions were then created along with MIPs through the vessels of [place]. This exam was performed according to our departmental dose-optimization program, which includes automated exposure control, adjustment of the mA and/or kV according to patient size and/or use of iterative reconstruction technique. NASCET criteria utilized for the evaluation of any stenotic lesions. FINDINGS: There is poor araya-white differentiation throughout the cerebral parenchyma. The basal cisterns and extra-axial CSF spaces are diffusely effaced and there is crowding of structures at the foramen magnum. The lateral ventricles are borderline small. The third ventricle and fourth ventricle are small. The cerebellar tonsils extend down to the level of the posterior ring of C1. The paranasal sinuses are clear. No acute abnormalities of the bones is seen. There is no evidence of flow-limiting stenosis, vascular malformation, or aneurysm in the vessels of the [place]. IMPRESSION: Findings are worrisome for diffuse cerebral parenchymal edema. MRI may provide additional information. No significant vascular abnormality in the vessels of the [place]. I discussed these critical findings with Dr. Lee at 2122 hours on 06/20/2018.
[2018-06-20 22:43] LABS: ABSOLUTE LYMPHOCYTES (AUTO) 2.6 10^3/uL (0.5-4.7); ABSOLUTE MONOCYTES (AUTO) 0.4 10^3/uL (0.1-1.4); ABSOLUTE NEUT (AUTO) 1.8 10^3/uL (1.7-8.2); BASOPHILS % (AUTO) 0.2 % (0-2); HEMATOCRIT 38.4 % (36.0-47.0); HEMOGLOBIN 12.7 g/dL (12.0-15.5); LYMPHOCYTES % (AUTO) 53.3 % (13-45); MEAN CORPUSCULAR HEMOGLOBIN 28.1 pg (27.0-33.4); MEAN CORPUSCULAR HGB CONC 33.1 g/dL (32.0-36.0); MEAN CORPUSCULAR VOLUME 85 fl (80-97); MONOCYTES % (AUTO) 9.1 % (3-13); PLATELET COUNT 291 10^3/uL (150-450); RED BLOOD COUNT 4.53 10^6/uL (3.72-5.28); SEGMENTED NEUTROPHILS % (AUTO) 36.4 % (42-78); TOTAL CELLS COUNTED % (AUTO) 100 %; WHITE BLOOD COUNT 4.8 10^3/uL (4.0-10.5)
[2018-06-21 04:58] VITALS: BP 105/78
== END 2018-06-21 05:05 | disposition short-term general hospital (02) ==
LOC: ER 19:43
DX: G93.6 Cerebral edema (principal); R27.0 Ataxia, unspecified; R51 Headache; R56.9 Unspecified convulsions; C92.11 Chronic myeloid leukemia, BCR/ABL-positive, in remission; Z94.81 Bone marrow transplant status; Z79.899 Other long term (current) drug therapy
CPT/HCPCS: 99291; 96361; 96375; 96365; 36415; 84703; 85025; 80048; 70450; 70496; A9270; J2765; J3475; J7030; J1100; J3490

== ENCOUNTER → 2018-12-20 | Outpatient (CLI) | payer MEDICARE, MEDICAID ==
[2018-12-20 16:00] LABS: ABSOLUTE LYMPHOCYTES (AUTO) 3.2 10^3/uL (0.5-4.7); ABSOLUTE MONOCYTES (AUTO) 0.7 10^3/uL (0.1-1.4); ABSOLUTE NEUT (AUTO) 3.9 10^3/uL (1.7-8.2); BASOPHILS % (AUTO) 0.2 % (0-2); EOSINOPHILS % (AUTO) 0.4 % (0-6); HEMATOCRIT 40.4 % (36.0-47.0); HEMOGLOBIN 12.9 g/dL (12.0-15.5); LYMPHOCYTES % (AUTO) 40.9 % (13-45); MEAN CORPUSCULAR HEMOGLOBIN 26.5 pg (27.0-33.4); MEAN CORPUSCULAR VOLUME 83 fl (80-97); MONOCYTES % (AUTO) 9.1 % (3-13); PLATELET COUNT 315 10^3/uL (150-450); RED BLOOD COUNT 4.88 10^6/uL (3.72-5.28); RED CELL DISTRIBUTION WIDTH 15.2 % (11.5-14.0); SEGMENTED NEUTROPHILS % (AUTO) 49.4 % (42-78); TOTAL CELLS COUNTED % (AUTO) 100 %; WHITE BLOOD COUNT 7.9 10^3/uL (4.0-10.5)
[2018-12-20 16:24] LABS: ANION GAP 10 (5-19); BLOOD UREA NITROGEN 12 mg/dL (7-20); CALCIUM 9.9 mg/dL (8.4-10.2); CARBON DIOXIDE 26 mmol/L (22-30); CHLORIDE 103 mmol/L (98-107); GLUCOSE 87 mg/dL (75-110); POTASSIUM 4.2 mmol/L (3.6-5.0)
--- NOTE | 2018-12-20 17:43 | RADIOLOGY REPORT (SQ) ---
EXAM DESCRIPTION: CHEST PA/LATERAL COMPLETED DATE/TIME: 12/20/2018 4:55 pm REASON FOR STUDY: MORBID (SEVERE) OBESITY DUE TO EXCESS CALORIES COMPARISON: 05/20/2018 EXAM PARAMETERS: NUMBER OF VIEWS: two views TECHNIQUE: Digital Frontal and Lateral radiographic views of the chest acquired. RADIATION DOSE: NA LIMITATIONS: none FINDINGS: LUNGS AND PLEURA: No opacities, masses or pneumothorax. No pleural effusion. MEDIASTINUM AND HILAR STRUCTURES: No masses or contour abnormalities. HEART AND VASCULAR STRUCTURES: Borderline cardiomegaly without pulmonary edema. BONES: No acute findings. HARDWARE: None in the chest. OTHER: No other significant finding. IMPRESSION: Borderline cardiomegaly without pulmonary edema. TECHNICAL DOCUMENTATION: JOB ID: [id number] [employer]- All Rights Reserved Reading location - IP/workstation name: [email or web address]
--- NOTE | 2018-12-21 14:36 | EKG REPORT ---
SEVERITY:- BORDERLINE ECG - SINUS TACHYCARDIA PROBABLE LEFT ATRIAL ABNORMALITY : Confirmed by: Colby Fowler 21-Dec-2018 14:36:03
== END ==
LOC: OD 14:49
PROVIDERS: ATTEND Surgery
DX: Z01.810 Encounter for preprocedural cardiovascular examination (principal); Z01.812 Encounter for preprocedural laboratory examination; Z01.818 Encounter for other preprocedural examination; E66.01 Morbid (severe) obesity due to excess calories; I51.7 Cardiomegaly
CPT/HCPCS: 36415; 71046; 80048; 84443; 85025; 93005; 93010

== ENCOUNTER → 2018-12-22 | Outpatient (CLI) | payer MEDICARE, MEDICAID ==
--- NOTE | 2018-12-22 12:33 | WOMENS IMAGING REPORT ---
EXAM DESCRIPTION: U/S ABDOMEN LIMITED COMPLETED DATE/TIME: 12/22/2018 8:38 am REASON FOR STUDY: R10.11 RIGHT UPPER QUADRANT PAIN R10.11 RIGHT UPPER QUADRANT PAIN COMPARISON: None. TECHNIQUE: Dynamic and static grayscale images acquired of the abdomen and recorded on PACS. Priscilao nichol selected color Doppler and spectral images recorded. LIMITATIONS: None. FINDINGS: PANCREAS: No masses. No peripancreatic edema or fluid collections. LIVER: Echotexture is coarse with increased echogenicity consistent with fatty infiltration. LIVER VASCULATURE: Normal directional flow of the main portal vein and hepatic veins. GALLBLADDER: No stones. Normal wall thickness. No pericholecystic fluid. ULTRASOUND-DETECTED RAMOS'S SIGN: Negative. INTRAHEPATIC DUCTS AND COMMON DUCT: CBD and intrahepatic ducts normal caliber. No filling defects. INFERIOR VENA CAVA: Normal flow. AORTA: No aneurysm. RIGHT KIDNEY: Normal size. Normal echogenicity. No solid or suspicious masses. No hydronephros is. No calcifications. PERITONEAL AND RIGHT PLEURAL SPACE: No ascites or effusions. OTHER: No other significant finding. IMPRESSION: FATTY INFILTRATION OF THE LIVER. OTHERWISE NORMAL RIGHT UPPER QUADRANT ULTRASOUND. TECHNICAL DOCUMENTATION: JOB ID: [id number] [employer]- All Rights Reserved Reading location - IP/workstation name: [email or web address]
== END ==
LOC: WI 07:55
PROVIDERS: ATTEND Surgery
DX: R10.11 Right upper quadrant pain (principal)
CPT/HCPCS: 76705

== ENCOUNTER 2019-01-30 18:16 | Emergency (ER) | payer MEDICARE, MEDICAID ==
[2019-01-30] MEDS ORDERED: ONDANSETRON HCL INJ/PF 4 MG/2 ML SDV IV ONE (18:53)
--- NOTE | 2019-01-30 18:55 | ER Document Report ---
ED Medical Screen (RME) - General Chief Complaint: Nausea/Vomiting Stated Complaint: DIZZINESS Time Seen by Provider: 01/30/19 18:48 Primary Care Provider: VALERIE COLON MD [Primary Care Provider] - Follow up as needed Notes: 28-year-old female with gastric bypass surgery on 01/19/2019 presents with nausea and vomiting since 01/22. Patient says that she cannot hold anything down when she takes sips of water comes right back up. This is been persistent since the . Patient states she feels dizzy and lightheaded, denies chest pain, complains of shortness of breath. Exam: Patient is ashen in appearance, mucous membranes are dry, tachycardic with a rate of 108, lungs are clear to auscultation in all echeverria I have greeted and performed a rapid initial assessment of this patient. A comprehensive ED assessment and evaluation of the patient, analysis of test results and completion of medical decision making process will be conducted by an additional ED providers. TRAVEL OUTSIDE OF THE [place] IN LAST 30 DAYS: No - Related Data Allergies/Adverse Reactions: No Known Allergies Allergy (Verified 01/30/19 18:43) Past Medical History - Social History Chew tobacco use (# tins/day): No Frequency of alcohol use: None Drug Abuse: None Neurological Medical History: Reports: Hx Seizures - first seizure Renal/ Medical History: Denies: Hx Peritoneal Dialysis Malignancy Medical History: Reports: Hx Leukemia - CML Past Surgical History: Reports: Hx Breast Surgery - Breast Reduction, Hx Vascular Surgery - tlsc - Immunizations Immunizations up to date: No Hx Diphtheria, Pertussis, Tetanus Vaccination: No Physical Exam - Vital signs Vitals: Temp Pulse Resp BP Pulse Ox 98.1 F 102 H 18 124/74 99 01/30/19 18:36 01/30/19 18:36 01/30/19 18:36 01/30/19 18:36 01/30/19 18:36 Course - Vital Signs Vital signs: Temp Pulse Resp BP Pulse Ox 98.1 F 102 H 18 124/74 99 01/30/19 18:36 01/30/19 18:36 01/30/19 18:36 01/30/19 18:36 01/30/19 18:36 Doctor's Discharge - Discharge Referrals: VALERIE COLON MD [Primary Care Provider] - Follow up as needed
[2019-01-30] MEDS ORDERED: ONDANSETRON 4 MG TAB.RAPDIS PO ONE (19:05)
[2019-01-30 19:49] LABS: ABSOLUTE EOSINOPHILS # (AUTO) 0.1 10^3/uL (0.0-0.6); ABSOLUTE LYMPHOCYTES (AUTO) 4.2 10^3/uL (0.5-4.7); ABSOLUTE MONOCYTES (AUTO) 0.9 10^3/uL (0.1-1.4); ABSOLUTE NEUT (AUTO) 5.2 10^3/uL (1.7-8.2); BASOPHILS % (AUTO) 0.4 % (0-2); EOSINOPHILS % (AUTO) 1.1 % (0-6); HEMATOCRIT 50.4 % (36.0-47.0); HEMOGLOBIN 16.4 g/dL (12.0-15.5); LYMPHOCYTES % (AUTO) 40.3 % (13-45); MEAN CORPUSCULAR HEMOGLOBIN 25.9 pg (27.0-33.4); MEAN CORPUSCULAR HGB CONC 32.5 g/dL (32.0-36.0); MEAN CORPUSCULAR VOLUME 80 fl (80-97); MONOCYTES % (AUTO) 8.2 % (3-13); PLATELET COUNT 337 10^3/uL (150-450); RED BLOOD COUNT 6.32 10^6/uL (3.72-5.28); RED CELL DISTRIBUTION WIDTH 15.3 % (11.5-14.0); TOTAL CELLS COUNTED % (AUTO) 100 %; WHITE BLOOD COUNT 10.4 10^3/uL (4.0-10.5)
[2019-01-30 19:56] LABS: AMORPHOUS SEDIMENT,URINE 1+ /HPF; APPEARANCE,URINE TURBID; BILIRUBIN,URINE MODERATE (NEGATIVE); COLOR,URINE AMBER; GLUCOSE, URINE NEGATIVE (NEGATIVE); KETONES,URINE 80 mg/dL (NEGATIVE); LEUKOCYTE ESTERASE,URINE NEGATIVE (NEGATIVE); NITRITE,URINE NEGATIVE (NEGATIVE); PROTEIN,URINE >=500 mg/dL (NEGATIVE)
[2019-01-30 20:12] LABS: ALKALINE PHOSPHATASE 159 U/L (38-126); ANION GAP 19 (5-19); ASPARTATE AMINO TRANSFERASE 56 U/L (14-36); BILIRUBIN,DIRECT 0.8 mg/dL (0.0-0.4); BILIRUBIN,TOTAL 1.4 mg/dL (0.2-1.3); BLOOD UREA NITROGEN 11 mg/dL (7-20); CALCIUM 10.6 mg/dL (8.4-10.2); CARBON DIOXIDE 21 mmol/L (22-30); CHLORIDE 100 mmol/L (98-107); GLUCOSE 112 mg/dL (75-110); POTASSIUM 4.5 mmol/L (3.6-5.0); TOTAL PROTEIN 8.7 g/dL (6.3-8.2)
[2019-01-30] MEDS: NORMAL SALINE 1000 ML 1,000 ML IV PRN ×2 (20:23→21:42)
--- NOTE | 2019-01-30 21:46 | ER Document Report ---
ED GI/ - General Chief Complaint: Nausea/Vomiting Stated Complaint: DIZZINESS Time Seen by Provider: 01/30/19 18:48 Primary Care Provider: [facility] [Provider Group] - Follow up in 3-5 days VALERIE MART MD [Primary Care Provider] - Follow up tomorrow Mode of Arrival: Ambulatory Information source: Patient Notes: Patient presents complaining of nausea and vomiting for the past 8 days. Patient is status post gastric bypass sleeve on 01/19/2019. Patient states that she has nausea medicine although it is not helped at home. Patient states that she vomits about 3 times a day. Patient denies any fever or diarrhea. Patient states that she only has abdominal pain when she vomits but otherwise has no abdominal tenderness. Patient has her follow-up appointment with her surgeon in 1 week. TRAVEL OUTSIDE OF THE [place] IN LAST 30 DAYS: No - HPI Patient complains to provider of: Vomiting Onset: Last week Timing/Duration: Persistent Quality of pain: Achy Pain Level: Denies Location: Other - Right side of abdomen only with vomiting Vaginal bleeding (Compared to normal period): None Associated symptoms: Nausea, Vomiting. denies: Chest pain, Constipation, Dysuria, Fever, Loss of appetite, Urinary hesitancy, Urinary frequency, Urinary retention, Urinary urgency Exacerbated by: Denies Relieved by: Denies Similar symptoms previously: No Recently seen / treated by doctor: Yes - Related Data Allergies/Adverse Reactions: No Known Allergies Allergy (Verified 01/30/19 18:43) Past Medical History - General Information source: Patient - Social History Smoking Status: Never Smoker Chew tobacco use (# tins/day): No Frequency of alcohol use: None Drug Abuse: None Occupation: None Family History: Reviewed & Not Pertinent Patient has suicidal ideation: No Patient has homicidal ideation: No - Medical History Medical History: Other - CML leukemia Neurological Medical History: Reports: 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 denies: Fever EENT: No symptoms reported Cardiovascular: No symptoms reported. denies: Chest pain Respiratory: No symptoms reported. denies: Cough Gastrointestinal: Abdominal pain - Only with vomiting, Vomiting, Poor fluid intake. denies: Diarrhea, Blood in vomit Genitourinary: No symptoms reported Female Genitourinary: No symptoms reported. denies: Musculoskeletal: No symptoms reported Skin: No symptoms reported Hematologic/Lymphatic: No symptoms reported Neurological/Psychological: No symptoms reported Physical Exam - Vital signs Vitals: Temp Pulse Resp BP Pulse Ox 98.1 F 102 H 18 124/74 99 01/30/19 18:36 01/30/19 18:36 01/30/19 18:36 01/30/19 18:36 01/30/19 18:36 - General General appearance: Appears well, Alert In distress: Mild - HEENT Head: Normocephalic Eyes: Normal Conjunctiva: Normal Nasal: Normal Mouth/Lips: Normal Mucous membranes: Dry Neck: Normal, Supple. No: Lymphadenopathy - Respiratory Respiratory status: No respiratory distress Chest status: Nontender Breath sounds: Normal. No: Rales, Rhonchi, Stridor, Wheezing Chest palpation: Normal - Cardiovascular Rhythm: Regular Heart sounds: S1 appreciated, S2 appreciated - Abdominal Inspection: Healed incision - No erythema or drainage from abdominal incisions, Morbidly Obese Distension: No distension Bowel sounds: Normal Tenderness: Nontender Organomegaly: No organomegaly - Back Back: Normal, Nontender. No: CVA tenderness - Extremities General upper extremity: Normal inspection, Normal strength General lower extremity: Normal inspection, Normal strength - Neurological Neuro grossly intact: Yes Cognition: Normal [place] Coma Scale Eye Opening: Spontaneous Caleb Coma Scale Verbal: Oriented [place] Coma Scale Motor: Obeys Commands Caleb Coma Scale Total: 15 - Psychological Associated symptoms: Normal affect, Normal mood - Skin Skin Temperature: Warm Skin Moisture: Dry Skin Color: Normal Course - Re-evaluation Re-evalutation: 01/30/19 21:[address] Ricks who recommends consultation with patient's surgeon for any recommendations given the fact that patient has had hematuria and abdominal pain only with vomiting. Consulted with Dr. Jurado at [facility] who is on-call for patient's bariatric surgeon Dr. Mart. Dr. Brannon recommends a noncontrasted CT scan to evaluate for possible kidney stone given patient's hematuria. Discussed with surgeon that patient only has abdominal tenderness with vomiting and Dr. Brannon feels that this is likely surgical incision pain from the vomiting. States that a contrasted scan can be considered after the noncontrasted study is performed although this is not necessary tonight and can be followed up in the office, as the patient does not sound like she has an acute abdomen at this time with normal white count, no fever and no abdominal tenderness without vomiting. States that patient will receive a call from her surgeon's nurse tomorrow and office staff can get a more timely follow-up appointment possibly even tomorrow for a recheck if patient is not admitted here tonight. 01/30/19 23:45 Patient's IV fluids have infused and patient has tolerated oral liquids without emesis. Will give patient additional prescription for Phenergan as she does not feel that the Zofran has been effective in managing her nausea. Patient does have close follow-up and will likely be seen her bariatric surgeon tomorrow. Patient was given the choice of staying to be admitted for IV hydration or following up with her surgeon tomorrow. Patient prefers to be discharged at this time. Good return precautions discussed with patient - Vital Signs Vital signs: Temp Pulse Resp BP Pulse Ox 97.6 F 108 H 16 129/71 H 98 01/31/19 00:08 01/31/19 00:08 01/31/19 00:08 01/31/19 00:08 01/31/19 00:08 - Laboratory Result Diagrams: 01/30/19 19:05 01/30/19 19:05 Laboratory results interpreted by me: 01/30/19 01/30/19 01/30/19 19:05 19:05 19:05 RBC 6.32 H Hgb 16.4 H Hct 50.4 H MCH 25.9 L RDW 15.3 H Carbon Dioxide 21 L Glucose 112 H Calcium 10.6 H Total Bilirubin 1.4 H Direct Bilirubin 0.8 H AST 56 H Alkaline Phosphatase 159 H Total Protein 8.7 H Urine Protein >=500 H Urine Ketones 80 H Urine Blood LARGE H Urine Bilirubin MODERATE H Urine Urobilinogen 4.0 H 01/30/19 23:46 Labs- Entire Visit 01/30/19 01/30/19 01/30/19 19:05 19:05 19:05 WBC 10.4 RBC 6.32 H Hgb 16.4 H Hct 50.4 H MCV 80 MCH 25.9 L MCHC 32.5 RDW 15.3 H Plt Count 337 Lymph % (Auto) 40.3 [place] % (Auto) 8.2 Eos % (Auto) 1.1 Baso % (Auto) 0.4 Absolute Neuts (auto) 5.2 Absolute Lymphs (auto) 4.2 Absolute Monos (auto) 0.9 Absolute Eos (auto) 0.1 Absolute Basos (auto) 0.0 Seg Neutrophils % 50.0 Sodium 139.7 Potassium 4.5 Chloride 100 Carbon Dioxide 21 L Anion Gap 19 BUN 11 Creatinine 0.70 Est GFR ( Amer) > 60 Est GFR (MDRD) Non-Af > 60 Glucose 112 H Calcium 10.6 H Total Bilirubin 1.4 H Direct Bilirubin 0.8 H Neonat Total Bilirubin Not Reportable Neonat Direct Bilirubin Not Reportable Neonat Indirect Bili Not Reportable AST 56 H ALT 103 Alkaline Phosphatase 159 H Total Protein 8.7 H Albumin 5.0 Urine Color SD Urine Appearance TURBID Urine pH 6.0 Ur Specific [place] 1.030 Urine Protein >=500 H Urine Glucose (UA) NEGATIVE Urine Ketones 80 H Urine Blood LARGE H Urine Nitrite NEGATIVE Urine Bilirubin MODERATE H Urine Urobilinogen 4.0 H Ur Leukocyte Esterase NEGATIVE Urine WBC (Auto) 4 Urine RBC (Auto) >182 Squamous Epi Cells Auto 6 Amorphous Sediment Auto 1+ Urine Mucus (Auto) MANY Urine Ascorbic Acid NEGATIVE Urine HCG, Qual NEGATIVE - Diagnostic Test Radiology reviewed: Reports reviewed Discharge - Discharge Clinical Impression: Dehydration Hematuria Qualifiers: Hematuria type: unspecified type Qualified Code(s): R31.9 - Hematuria, unspecified Nausea & vomiting Qualifiers: Vomiting type: unspecified Vomiting Intractability: non-intractable Qualified Code(s): R11.2 - Nausea with vomiting, unspecified Condition: Stable Disposition: HOME, SELF-CARE Instructions: Antinausea Medication ([facility]), Dehydration ([facility]), Hematuria ([facility]), Intravenous (IV) Fluids ([facility]), Vomiting ([facility]) Additional Instructions: Return immediately for any new or worsening symptoms: Fever, worsening pain, persistent vomiting or any concerns Followup with your bariatric surgeon, the nurse from their office will call you tomorrow so that you can get a timely appointment likely tomorrow in the office to see Dr. Echeverria. Call their office if you have not heard from them tomorrow. Follow-up with urology for further evaluation of the blood in your urine Prescriptions: Promethazine HCl [Phenergan 25 mg Tablet] 25 mg PO Q6H PRN #10 tablet PRN Reason: Referrals: VALERIE MART MD [Primary Care Provider] - Follow up tomorrow [facility] [Provider Group] - Follow up in 3-5 days
--- NOTE | 2019-01-30 22:17 | RADIOLOGY REPORT (SQ) ---
EXAM DESCRIPTION: CT ABDOMEN PELVIS WITHOUT IV CONTRAST COMPLETED DATE/TME: 01/30/2019 21:36 CLINICAL HISTORY: 28 years, Female, hematuria, r side abd pain, hx gastric sleeve This exam was performed according to our departmental dose-optimization program which includes automated exposure control, adjustment of the mA and/or kVp according to patient size and/or use of iterative reconstruction technique where applicable. FINDINGS: Visualized lung bases are within normal limits. Liver, spleen, pancreas, gallbladder, adrenal glands and kidneys are within normal limits. No hydronephrosis or biliary dilatation. Postoperative changes. No renal, ureteral or bladder calculus. No dilated loops of bowel to suggest obstruction. Mild amount of stool in the colon. Appendix is normal. No free fluid or free air. No abdominal or pelvic lymphadenopathy. Abdominal aorta is within normal limits. Bladder is unremarkable. IMPRESSION: No evidence for nephrolithiasis or urinary obstruction. No evidence for acute appendicitis. No acute pathology.
[2019-01-31 00:09] VITALS: BP 129/71
== END 2019-01-31 00:08 | disposition home or self-care (01) ==
LOC: ER 18:16
DX: E86.0 Dehydration (principal); R31.9 Hematuria, unspecified; R11.2 Nausea with vomiting, unspecified; R42 Dizziness and giddiness; R10.9 Unspecified abdominal pain
CPT/HCPCS: 36415; 85025; 81025; 80053; 81001; 74176; A9270; J7030; 96360; 99284; S0119

== ENCOUNTER → 2019-02-03 | Outpatient (CLI) | payer MEDICARE, MEDICAID ==
[2019-02-04 10:42] LABS: HEPATITIS B SURFACE AB QUAL Reactive (.); MUMPS IGG AB <9.0 AU/mL (Immune >10); RUBEOLA IGG AB <13.5 AU/mL (Immune >16); VARICELLA ZOSTER IGG AB 253 index (Immune >16)
== END ==
LOC: OD 11:17
PROVIDERS: ATTEND Family Medicine
DX: Z01.84 Encounter for antibody response examination (principal)
CPT/HCPCS: 36415; 86706; 86735; 86762; 86765; 86787

== ENCOUNTER 2019-04-19 11:45 | Emergency (ER) | payer MEDICARE, MEDICAID ==
[2019-04-19] MEDS ORDERED: NORMAL SALINE 1000 ML 1,000 ML IV ONE (12:44)
--- NOTE | 2019-04-19 12:46 | ER Document Report ---
ED Medical Screen (RME) - General Chief Complaint: Other Stated Complaint: GET FLUIDS Time Seen by Provider: 04/19/19 12:39 Primary Care Provider: NICKO ALLEN MD [Primary Care Provider] - Follow up as needed Mode of Arrival: Ambulatory Notes: 28-year-old female presents to ED for complaint of feeling dry feels like she is dehydrated. Patient states she had a seizure Wednesday she has been trying to drink fluids but she is not getting enough fluids in. She states she is on Keppra for her seizures. She has a history of CML and had a ldekf-nhxgfk-styg episode which is what caused the seizure. She states she had a stem cell transplant for her CML. She is also had a brain biopsy in July. She had a gastric sleeve in 2018 for obesity. She states she does not smoke drink or drugs. She states she just thinks she needs some IV fluids because she has not been able to get enough fluids down and she feels dehydrated. I have greeted and performed a rapid initial assessment of this patient. A comprehensive ED assessment and evaluation of the patient, analysis of test results and completion of medical decision making process will be conducted by an additional ED providers. TRAVEL OUTSIDE OF THE [place] 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 Renal/ Medical History: Denies: Hx Peritoneal Dialysis Malignancy Medical History: Reports: Hx Leukemia - CML Past Surgical History: Reports: Hx Breast Surgery - Breast Reduction, Hx Gastric Bypass Surgery - Gastric sleeve, Hx Vascular Surgery - tlsc - Immunizations Immunizations up to date: No Hx Diphtheria, Pertussis, Tetanus Vaccination: No Physical Exam - Vital signs Vitals: Temp Pulse Resp BP Pulse Ox 97.9 F 61 16 101/67 99 04/19/19 12:34 04/19/19 12:34 04/19/19 12:34 04/19/19 12:34 04/19/19 12:34 Course - Vital Signs Vital signs: Temp Pulse Resp BP Pulse Ox 97.9 F 61 16 101/67 99 04/19/19 12:34 04/19/19 12:34 04/19/19 12:34 04/19/19 12:34 04/19/19 12:34 Doctor's Discharge - Discharge Referrals: NICKO ALLEN MD [Primary Care Provider] - Follow up as needed
--- NOTE | 2019-04-19 13:30 | ER Document Report ---
ED General - General Chief Complaint: dehydration Stated Complaint: GET FLUIDS Time Seen by Provider: 04/19/19 12:39 Primary Care Provider: NICKO ALLEN MD [Primary Care Provider] - Follow up as needed Mode of Arrival: Ambulatory Information source: Patient, [facility] Records TRAVEL OUTSIDE OF THE [place] IN LAST 30 DAYS: No - HPI Notes: 28F has a history of CML first diagnosed 2011 and underwent chemo it despite this advanced to blast status she says so in 2016 underwent stem cell transplant. After this she did have onset of seizures which were felt possibly due to "rejection" of transplant. She says she underwent a brain biopsy at [facility] since her brain appeared to be "swollen" this was nondiagnostic she said and did not explain reasons for the seizure . She says her primary care doctor is Betsy Allen here in town. She has been prescribed Keppra by her oncologist at [facility] Dr. Margoth Drew since onset of her seizures. It was in January 2019 when she had a gastric sleeve procedure done. After this she ad mits she has really not been compliant with her Keppra use which fell off that month January 2019 was not taking in February or March. Has just tried restarted but thinks she did have a seizure last night. She says she has been feeling well otherwise has not had any fever chills sweats. Has been eating okay. She has taken her Keppra today. - Related Data Allergies/Adverse Reactions: No Known Allergies Allergy (Verified 01/30/19 18:43) Past Medical History - Social History Smoking Status: Never Smoker Frequency of alcohol use: None Drug Abuse: None Family History: Reviewed & Not Pertinent Patient has suicidal ideation: No Patient has homicidal ideation: No Neurological Medical History: Reports: Hx Seizures - Graft versus host reaction s/p stem cell transplant " Renal/ Medical History: Denies: Hx Peritoneal Dialysis Malignancy Medical History: Reports: Hx Leukemia - CML Past Surgical History: Reports: Hx Abdominal Surgery - gastric sleeve, Hx Breast Surgery - Breast Reduction, Hx Gastric Bypass Surgery - Gastric sleeve, Hx Vascular Surgery - tlsc/pac insertion and removal - Immunizations Immunizations up to date: No Hx Diphtheria, Pertussis, Tetanus Vaccination: No Review of Systems - Review of Systems Constitutional: No symptoms reported EENT: No symptoms reported Cardiovascular: No symptoms reported Respiratory: No symptoms reported Gastrointestinal: No symptoms reported Genitourinary: No symptoms reported Female Genitourinary: No symptoms reported Musculoskeletal: No symptoms reported Skin: No symptoms reported Hematologic/Lymphatic: No symptoms reported Neurological/Psychological: See HPI. denies: Confusion, Depression, Anxiety, Hallucinations, Sensory change, Homicidal ideation, Weakness, Gait changes, Loss of power, Paralysis, Headaches, Numbness, Suicidal ideation, Tingling Physical Exam - Vital signs Vitals: Temp Pulse Resp BP Pulse Ox 97.9 F 61 16 101/67 99 04/19/19 12:34 04/19/19 12:34 04/19/19 12:34 04/19/19 12:34 04/19/19 12:34 Interpretation: Normal - General General appearance: Appears well, Alert - HEENT Head: Normocephalic, Atraumatic Eyes: Normal Pupils: PERRL - Respiratory Respiratory status: No respiratory distress Chest status: Nontender Breath sounds: Normal Chest palpation: Normal - Cardiovascular Rhythm: Regular Heart sounds: Normal auscultation Murmur: No - Abdominal Inspection: Normal Distension: No distension Bowel sounds: Normal Tenderness: Nontender Organomegaly: No organomegaly - Back Back: Normal, Nontender - Extremities General upper extremity: Normal inspection, Nontender, Normal color, Normal ROM, Normal temperature General lower extremity: Normal inspection, Nontender, Normal color, Normal ROM, Normal temperature, Normal weight bearing. No: Velasquez's sign - Neurological Neuro grossly intact: Yes Cognition: Normal Orientation: AAOx4 [place] Coma Scale Eye Opening: Spontaneous [place] Coma Scale Verbal: Oriented [place] Coma Scale Motor: Obeys Commands [place] Coma Scale Total: 15 Speech: Normal Motor strength normal: LUE, RUE, LLE, RLE Sensory: Normal - Psychological Associated symptoms: Normal affect, Normal mood - Skin Skin Temperature: Warm Skin Moisture: Dry Skin Color: Normal Course - Re-evaluation Re-evalutation: 04/20/19 00:22 Vital signs remained within normal limits did give her a potassium of 20 mg p.o. really her potassium was only 3.4 and within normal limits. She had been given a liter normal saline. We sent off a Keppra level and I gave her a loading dose of Keppra since she did show me per her [facility] my chart that her oncologist does in fact prescribe this for her. She has refilled and has adequate supply. We discussed plan of calling the primary care doc and her oncologist to discuss who she would be following up with for management of her seizures. She had seen a neurologist once in [place] before. But I said since the person prescribing your Keppra still your oncologist I would specifically discussed this with her and I think it would be best for her neurologist to be on top of managing your seizures though. Specifically because it was not confirmed per what you say the work-up to find a etiology for onset of seizures was after SC transplant. - Vital Signs Vital signs: Temp Pulse Resp BP Pulse Ox 97.9 F 73 18 97/43 L 97 04/19/19 18:00 04/19/19 18:00 04/19/19 18:00 04/19/19 18:00 04/19/19 18:00 - Laboratory Result Diagrams: 04/19/19 13:11 04/19/19 13:11 Laboratory results interpreted by me: 04/19/19 04/19/19 04/19/19 13:11 13:11 13:11 MCH 26.2 L RDW 19.5 H Lymph % (Auto) 48.4 H Eos % (Auto) 6.5 H Seg Neutrophils % 32.2 L Potassium 3.4 L BUN 5 L Creatinine 0.39 L Urine Protein 100 H Urine Ketones 20 H Urine Blood MODERATE H Urine Bilirubin SMALL H Urine Urobilinogen 4.0 H Leukocyte Esterase Rfl LARGE H Discharge - Discharge Clinical Impression: Seizure disorder, Breakthrough seizure, Seizure secondary to subtherapeutic anticonvulsant medication, Noncompliance Condition: Good Disposition: HOME, SELF-CARE Additional Instructions: Today in the emergency department you received a liter of IV fluids your labs l ooked okay I gave you some potassium since were very barely minimally low below normal. Also we sent off a Keppra level from your blood tests which will be back in a few days but you can ask your doctor whether it be your cancer doctor at [facility], or your primary care doctor here about who you need to be following up with for management of your seizures. It is important you are able to continue taking your seizure medicines as prescribed especially following up with your neurologist to discuss continued use and how to continue managing these since your case is unique and that you had seizures developed after your stem cell transplant. Is probably a good idea to have either your cancer doctor, but probably better to have a neurologist at [facility] or locally here manage this medicine. Referrals: NICKO ALLEN MD [Primary Care Provider] - Follow up as needed
[2019-04-19 13:33] LABS: APPEARANCE,URINE CLOUDY; BILIRUBIN,URINE SMALL (NEGATIVE); COLOR,URINE AMBER; GLUCOSE, URINE NEGATIVE (NEGATIVE); KETONES,URINE 20 mg/dL (NEGATIVE); PROTEIN,URINE 100 mg/dL (NEGATIVE); URINE SPECIFIC GRAVITY 1.025
[2019-04-19 13:34] LABS: ABSOLUTE EOSINOPHILS # (AUTO) 0.3 10^3/uL (0.0-0.6); ABSOLUTE LYMPHOCYTES (AUTO) 2.5 10^3/uL (0.5-4.7); ABSOLUTE MONOCYTES (AUTO) 0.6 10^3/uL (0.1-1.4); ABSOLUTE NEUT (AUTO) 1.7 10^3/uL (1.7-8.2); BASOPHILS % (AUTO) 0.6 % (0-2); EOSINOPHILS % (AUTO) 6.5 % (0-6); HEMATOCRIT 38.6 % (36.0-47.0); HEMOGLOBIN 12.6 g/dL (12.0-15.5); LYMPHOCYTES % (AUTO) 48.4 % (13-45); MEAN CORPUSCULAR HEMOGLOBIN 26.2 pg (27.0-33.4); MEAN CORPUSCULAR HGB CONC 32.6 g/dL (32.0-36.0); MEAN CORPUSCULAR VOLUME 80 fl (80-97); MONOCYTES % (AUTO) 12.3 % (3-13); PLATELET COUNT 217 10^3/uL (150-450); RED CELL DISTRIBUTION WIDTH 19.5 % (11.5-14.0); SEGMENTED NEUTROPHILS % (AUTO) 32.2 % (42-78); TOTAL CELLS COUNTED % (AUTO) 100 %; WHITE BLOOD COUNT 5.2 10^3/uL (4.0-10.5)
[2019-04-19 13:54] LABS: ALKALINE PHOSPHATASE 59 U/L (38-126); ANION GAP 9 (5-19); ASPARTATE AMINO TRANSFERASE 34 U/L (14-36); BILIRUBIN,DIRECT 0.2 mg/dL (0.0-0.4); BILIRUBIN,TOTAL 0.5 mg/dL (0.2-1.3); BLOOD UREA NITROGEN 5 mg/dL (7-20); CALCIUM 9.7 mg/dL (8.4-10.2); CARBON DIOXIDE 30 mmol/L (22-30); CHLORIDE 103 mmol/L (98-107); GLUCOSE 81 mg/dL (75-110); POTASSIUM 3.4 mmol/L (3.6-5.0); TOTAL PROTEIN 7.1 g/dL (6.3-8.2)
[2019-04-19] MEDS ORDERED: POTASSIUM CHLORIDE 10 MEQ TABLET.ER PO ONE (14:37)
[2019-04-19] MEDS ORDERED: LEVETIRACETAM 1000 MG/NACL-ISO 1,000 MG/100 ML RTUPB IV ONE (16:10)
[2019-04-19 18:01] VITALS: BP 97/43
== END 2019-04-19 18:00 | disposition home or self-care (01) ==
LOC: ER 11:45
DX: G40.909 Epilepsy, unspecified, not intractable, without status epilepticus (principal); E86.0 Dehydration; R79.89 Other specified abnormal findings of blood chemistry; Z91.14 Patient's other noncompliance with medication regimen
CPT/HCPCS: 36415; 80177; 83690; 85025; 80053; 81001; J7030; A9270; J1953; 96361; 96365; 99284

== ENCOUNTER 2019-05-17 10:24 | Emergency (ER) | payer MEDICARE, MEDICAID ==
--- NOTE | 2019-05-17 10:53 | ER Document Report ---
ED Medical Screen (RME) - General Chief Complaint: General Weakness Stated Complaint: WEAKNESS Time Seen by Provider: 05/17/19 10:47 Primary Care Provider: NICKO ALLEN MD [Primary Care Provider] - Follow up as needed Mode of Arrival: Ambulatory Information source: Patient Notes: 28-year-old female presents to ED for complaint of weakness today. She states she had a seizure yesterday. She states she started having seizures at the end of 2018 beginning of June end may. She has been to a neurologist and is scheduled an appointment on 14 June. Mother states that yesterday she had a seizure starting off with a gazing off in the air then 10-15 minutes later she went into a full body tremors. He is on Keppra states EMS came to the house and they determined she did not need to come to the emergency. She states she does not remember anything of yesterday. Mother states the EMS was out of the house for good while because it took her a while to come back to her normal self. They determined that she did not need to come to the emergency room yesterday. Patient states she still feeling dazed does not feel her normal self and is feeling weak. She states that when she hears anything she hears it over and over in her head like it is a recording. Mother states that she did not hit her head yesterday. Mother states that last time she had a seizure there was some swelling in the brain and she really would like a CAT scan done of this brain today. I have greeted and performed a rapid initial assessment of this patient. A comprehensive ED assessment and evaluation of the patient, analysis of test results and completion of medical decision making process will be conducted by an additional ED providers. TRAVEL OUTSIDE OF THE [place] IN LAST 30 DAYS: No - Related Data Allergies/Adverse Reactions: No Known Allergies Allergy (Verified 01/30/19 18:43) Past Medical History Neurological Medical History: Reports: Hx Seizures - Graft versus host reaction s/p stem cell transplant " Renal/ Medical History: Denies: Hx Peritoneal Dialysis Malignancy Medical History: Reports: Hx Leukemia - CML Past Surgical History: Reports: Hx Abdominal Surgery - gastric sleeve, Hx Breast Surgery - Breast Reduction, Hx Gastric Bypass Surgery - Gastric sleeve, Hx Vascular Surgery - tlsc/pac insertion and removal - Immunizations Immunizations up to date: No Hx Diphtheria, Pertussis, Tetanus Vaccination: No Physical Exam - Vital signs Vitals: Temp Pulse Resp BP Pulse Ox 97.8 F 82 20 124/77 96 05/17/19 10:36 05/17/19 10:36 05/17/19 10:36 05/17/19 10:36 05/17/19 10:36 Course - Vital Signs Vital signs: Temp Pulse Resp BP Pulse Ox 97.8 F 82 20 124/77 96 05/17/19 10:36 05/17/19 10:36 05/17/19 10:36 05/17/19 10:36 05/17/19 10:36 Doctor's Discharge - Discharge Referrals: NICKO ALLEN MD [Primary Care Provider] - Follow up as needed
[2019-05-17 11:39] LABS: APPEARANCE,URINE SLIGHTLY-CLOUDY; BILIRUBIN,URINE NEGATIVE (NEGATIVE); COLOR,URINE YELLOW; GLUCOSE, URINE NEGATIVE (NEGATIVE); KETONES,URINE TRACE mg/dL (NEGATIVE); PROTEIN,URINE 30 mg/dL (NEGATIVE); URINE SPECIFIC GRAVITY 1.015
[2019-05-17 11:40] LABS: ABSOLUTE LYMPHOCYTES (AUTO) 2.8 10^3/uL (0.5-4.7); ABSOLUTE MONOCYTES (AUTO) 0.7 10^3/uL (0.1-1.4); ABSOLUTE NEUT (AUTO) 2.1 10^3/uL (1.7-8.2); BASOPHILS % (AUTO) 0.2 % (0-2); EOSINOPHILS % (AUTO) 0.8 % (0-6); HEMATOCRIT 42.3 % (36.0-47.0); HEMOGLOBIN 13.9 g/dL (12.0-15.5); LYMPHOCYTES % (AUTO) 49.4 % (13-45); MEAN CORPUSCULAR HEMOGLOBIN 27.2 pg (27.0-33.4); MEAN CORPUSCULAR HGB CONC 32.8 g/dL (32.0-36.0); MONOCYTES % (AUTO) 11.8 % (3-13); PLATELET COUNT 317 10^3/uL (150-450); RED CELL DISTRIBUTION WIDTH 18.7 % (11.5-14.0); SEGMENTED NEUTROPHILS % (AUTO) 37.8 % (42-78); TOTAL CELLS COUNTED % (AUTO) 100 %; WHITE BLOOD COUNT 5.6 10^3/uL (4.0-10.5)
[2019-05-17 11:42] LABS: MEAN CORPUSCULAR VOLUME 83 fl (80-97)
[2019-05-17 11:50] LABS: ALBUMIN 4.3 g/dL (3.5-5.0); ALKALINE PHOSPHATASE 66 U/L (38-126); ANION GAP 9 (5-19); ASPARTATE AMINO TRANSFERASE 28 U/L (14-36); BILIRUBIN,DIRECT 0.3 mg/dL (0.0-0.4); BILIRUBIN,TOTAL 0.6 mg/dL (0.2-1.3); BLOOD UREA NITROGEN 4 mg/dL (7-20); CARBON DIOXIDE 33 mmol/L (22-30); CHLORIDE 101 mmol/L (98-107); GLUCOSE 93 mg/dL (75-110); POTASSIUM 3.5 mmol/L (3.6-5.0)
--- NOTE | 2019-05-17 12:02 | ER Document Report ---
ED General - General Chief Complaint: Weakness Stated Complaint: WEAKNESS Time Seen by Provider: 05/17/19 10:47 Primary Care Provider: NICKO ALLEN MD [Primary Care Provider] - Follow up as needed Mode of Arrival: Ambulatory Notes: CHIEF COMPLAINT: Evaluation after seizure yesterday HPI: 28-year-old female with history of CML in remission who follows at [facility] and also history of seizures that began last year after stem cell transplant who is on Keppra presenting after having had a seizure yesterday. Patient states she does not specifically recall what happened but does remember waking up at home. Complains of mild headache. Has had sinus congestion and cough for several days. Denies dysuria abdominal pain nausea vomiting. Denies chest pain shortness of breath weakness numbness tingling in the extremities. Denies visual change or loss. Patient states that EMS did come to the house yesterday but patient had stopped seizing and they did not bring the patient into the [facility] department. ROS: See HPI - all other systems were reviewed and are otherwise negative Constitutional: no fever Eyes: no drainage, no blurred vision ENT: + runny nose, no sore throat Cardiovascular: no chest pain Resp: no SOB, + cough GI: no vomiting, no diarrhea : no dysuria Integumentary: no rash Allergy: no hives Musculoskeletal: no extremity pain or swelling Neurological: no numbness/tingling, no weakness, mild headache MEDICATIONS: I agree with the patient medications as charted by the RN. ALLERGIES: I agree with the allergies as charted by the RN. PAST MEDICAL HISTORY/PAST SURGICAL HISTORY: Reviewed and agree as charted by RN. SOCIAL HISTORY: Reviewed and agree as charted by RN. FAMILY HISTORY: No significant familial comorbid conditions directly related to patient complaint EXAM: Reviewed vital signs as charted by RN. CONSTITUTIONAL: Alert and oriented and responds appropriately to questions. Well-appearing; well-nourished, no acute distress at this time HEAD: Normocephalic; atraumatic EYES: PERRL; Conjunctivae clear, sclerae non-icteric. No nystagmus ENT: normal nose; no rhinorrhea; moist mucous membranes; pharynx without lesions noted NECK: Supple without meningismus; non-tender; no cervical lymphadenopathy, no masses CARD: RRR; no murmurs, no clicks, no rubs, no gallops; symmetric distal pulses RESP: Normal chest excursion without splinting or tachypnea; breath sounds clear and equal bilaterally; no wheezes, no rhonchi, no rales, pulse oximetry ABD/GI: Obese, normal bowel sounds; non-distended; soft, non-tender, no rebound, no guarding; no palpable organomegaly or masses. BACK: The back appears normal and is non-tender to palpation, there is no CVA tenderness EXT: Normal ROM in all joints; non-tender to palpation; no cyanosis, no effusi ons, no edema SKIN: Normal color for age and race; warm; dry; good turgor; no acute lesions noted NEURO: Moves all extremities equally; Motor and sensory function intact. Gait is normal. Strength equal 5/5 bilateral upper and lower extremities. Sensation intact and equal bilateral upper and lower extremities. PSYCH: The patient's mood and manner are appropriate. Grooming and personal hygiene are appropriate. MDM: 28-year-old female presenting for evaluation of a mild headache after having had a seizure yesterday. Patient was initially screened through the triage process. Had screening labs ordered which show possible mild UTI. Patient other labs are nonactionable. She was concerned about the seizure because when she began having seizures a year ago she had "swelling of the brain ". Patient requesting CT to evaluate and make sure she does not have any cranial abnormalities. Patient is completely neurologically intact today. She does have copious green nasal secretions and a slight dry cough. Chest x-ray does not show evidence of pneumonia. TRAVEL OUTSIDE OF THE [place] 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 " Renal/ Medical History: Denies: Hx Peritoneal Dialysis Malignancy Medical History: Reports: Hx Leukemia - CML Past Surgical History: Reports: Hx Abdominal Surgery - gastric sleeve, Hx Breast Surgery - Breast Reduction, Hx Gastric Bypass Surgery - Gastric sleeve, Hx Vascular Surgery - tlsc/pac insertion and removal - Immunizations Immunizations up to date: No Hx Diphtheria, Pertussis, Tetanus Vaccination: No Physical Exam - Vital signs Vitals: Temp Pulse Resp BP Pulse Ox 97.8 F 82 20 124/77 96 05/17/19 10:36 05/17/19 10:36 05/17/19 10:36 05/17/19 10:36 05/17/19 10:36 Course - Re-evaluation Re-evalutation: 05/17/19 12:54 Patient is in no distress at this time. Her head CT does not show acute emergent or actionable changes at this time. Her neurologist is at [facility]. She states that when she had a seizure yesterday they did call. She currently has an appointment in June with them. She is only on Keppra at this time for her seizures. Did not have any seizure activity today. She has been alert and oriented during her entire stay here. Does appear to possibly have UTI and sinusitis, will require antibiotic therapy. - Vital Signs Vital signs: Temp Pulse Resp BP Pulse Ox 97.8 F 82 20 124/77 96 05/17/19 10:36 05/17/19 10:36 05/17/19 10:36 05/17/19 10:36 05/17/19 10:36 - Laboratory Result Diagrams: 05/17/19 11:05 05/17/19 11:05 Laboratory results interpreted by me: 05/17/19 05/17/19 05/17/19 11:05 11:05 11:05 RDW 18.7 H Lymph % (Auto) 49.4 H Seg Neutrophils % 37.8 L Potassium 3.5 L Carbon Dioxide 33 H BUN 4 L Creatinine 0.40 L Urine Protein 30 H Urine Ketones TRACE H Urine Urobilinogen 4.0 H Leukocyte Esterase Rfl LARGE H Valproic Acid < 10.0 L Discharge - Discharge Clinical Impression: Seizure UTI (urinary tract infection) Qualifiers: Urinary tract infection type: acute cystitis Hematuria presence: with hematuria Qualified Code(s): N30.01 - Acute cystitis with hematuria Condition: Stable Disposition: HOME, SELF-CARE Additional Instructions: Take the antibiotics as prescribed. It was noted today that you have a possible urinary infection as well as a sinus infection. Follow-up with your neurologist at [facility] for further evaluation and instruction. Call today to determine if they wish to change your Keppra dosing. Prescriptions: Cephalexin Monohydrate [Keflex 500 mg Capsule] 500 mg PO Q6H 5 Days capsule Referrals: NICKO ALLEN MD [Primary Care Provider] - Follow up as needed
--- NOTE | 2019-05-17 12:35 | RADIOLOGY REPORT (SQ) ---
EXAM DESCRIPTION: CT HEAD WITHOUT COMPLETED DATE/TIME: 05/17/2019 12:17 pm REASON FOR STUDY: seizure COMPARISON: None. TECHNIQUE: Axial images acquired through the brain without intravenous contrast. Images reviewed wi th bone, brain and subdural windows. Additional sagittal and coronal reconstructions were generated. Images stored on PACS. All CT scanners at this facility use dose modulation, iterative reconstruction, and/or weight based d osing when appropriate to reduce radiation dose to as low as reasonably achievable (ALARA). [facility]: Dose Right [facility]: CareDose [facility]: Dose Right [facility]: Teradose 4D [facility]: Smart [email or web address] RADIATION DOSE: CT Rad equipment meets quality standard of care and radiation dose reduction techniq ues were employed. CTDIvol: 53.2 mGy. DLP: 964 mGy-cm. LIMITATIONS: None. FINDINGS: The focal area of hypoattenuation within the periventricular white matter of the left fron elana lobe (image 20 of series 2) could represent a prominent [place] space. There is no acute i ntracranial hemorrhage, vascular territorial infarct, extra-axial fluid collection, mass effect or mi dline shift. There is no effacement of the cerebral sulci or basal subarachnoid cisterns. The araya- white matter differentiation is preserved. The maxillary sinuses and ethmoid air cells are opacified and there is thickening of the mucosal lining of the frontal and sphenoid sinuses. The mastoid air cells are clear. There is no abnormality of the orbits and globes. The calvarium is intact. IMPRESSION: 1. No acute intracranial abnormality. 2. Opacification of the maxillary sinuses and ethmoid air cells and thickening of the mucosal lining of the frontal and sphenoid sinuses. Clinical correlation to exclude an acute sinusitis is recommen ded. EVIDENCE OF ACUTE STROKE: NO. COMMENT: Quality ID # [id number]: Final reports with documentation of one or more dose reduction techniques (e.g., Automated exposure control, adjustment of the mA and/or kV according to patient size, use of iterative reconstruction technique) TECHNICAL DOCUMENTATION: JOB ID: [id number] [employer]- All Rights Reserved Reading location - IP/workstation name: [email or web address]
--- NOTE | 2019-05-17 12:39 | RADIOLOGY REPORT (SQ) ---
EXAM DESCRIPTION: CHEST 2 VIEWS COMPLETED DATE/TIME: 05/17/2019 12:30 pm REASON FOR STUDY: cough COMPARISON: PA and lateral views of the chest from 12/20/2018. EXAM PARAMETERS: NUMBER OF VIEWS: two views TECHNIQUE: PA and lateral views of the chest were obtained. RADIATION DOSE: NA LIMITATIONS: none FINDINGS: LUNGS AND PLEURA: Low inspiratory lung volumes without an acute consolidation, pleural eff usion or pneumothorax. MEDIASTINUM AND HILAR STRUCTURES: No mediastinal or hilar contour abnormality. HEART AND VASCULAR STRUCTURES: The cardiac silhouette and pulmonary vasculature are within normal gonsalez its. BONES: No acute findings. HARDWARE: None in the chest. OTHER: No other finding. IMPRESSION: Low inspiratory lung volumes without a superimposed acute cardiopulmonary process. TECHNICAL DOCUMENTATION: JOB ID: [id number] [employer]- All Rights Reserved Reading location - IP/workstation name: [email or web address]
[2019-05-17] MEDS ORDERED: CEPHALEXIN 500 MG CAPSULE PO ONE (12:58)
[2019-05-17 13:54] VITALS: BP 100/64
== END 2019-05-17 13:54 | disposition home or self-care (01) ==
LOC: ER 10:24
DX: N30.01 Acute cystitis with hematuria (principal); R56.9 Unspecified convulsions; R53.1 Weakness; R51 Headache; R09.81 Nasal congestion; R05 Cough; Z85.6 Personal history of leukemia
CPT/HCPCS: 99284; 36415; 87086; 84703; 85025; 80053; 81001; 80164; 71046; 70450; A9270

== ENCOUNTER → 2020-05-21 | Outpatient (CLI) | payer MEDICARE, MEDICAID ==
--- NOTE | 2020-05-21 17:46 | RADIOLOGY REPORT (SQ) ---
EXAM DESCRIPTION: L SPINE 2 VIEWS IMAGES COMPLETED DATE/TIME: 05/21/2020 5:20 pm REASON FOR STUDY: (M54.5)LOW BACK PAIN M54.5 LOW BACK PAIN COMPARISON: None. NUMBER OF VIEWS: Two views. TECHNIQUE: AP and lateral radiographic images acquired of the lumbar spine. LIMITATIONS: None. FINDINGS: MINERALIZATION: Normal. SEGMENTATION: Normal. No transitional anatomy. ALIGNMENT: Normal. VERTEBRAE: Maintained height. No fracture or worrisome bone lesion. DISCS: Preserved height. No significant osteophytes or end plate irregularity. POSTERIOR ELEMENTS: Pedicles and facets are intact. No pars defect or posterior arch defects. HARDWARE: None in the spine. PARASPINAL SOFT TISSUES: Normal. PELVIS: Intact as visualized. No fractures or worrisome bone lesions. SI joints intact. OTHER: No other significant finding. IMPRESSION: NORMAL 2 VIEW LUMBAR SPINE. TECHNICAL DOCUMENTATION: JOB ID: [id number] [employer]- All Rights Reserved Reading location - IP/workstation name: [email or web address]
== END ==
LOC: RAD 16:50
PROVIDERS: ATTEND Family Medicine
DX: M54.5 Low back pain (principal)
CPT/HCPCS: 72100